=== PATIENT | male | born 1950 | race Caucasian/White ===

== ENCOUNTER 2021-01-14 23:40 | Inpatient (IN) | payer MEDICARE, SELFPAY ==
--- NOTE | ~2021-01-14 | CT_ITS ---
EXAMINATION: CT brain wo con INDICATION: Weakness COMPARISON: None TECHNIQUE: Standard unenhanced head CT. The dose-length product (DLP) was 681.00 mGy-cm. The mA was a djusted according to patient size. Iterative reconstruction technique was employed. FINDINGS: There is no acute intraparenchymal hemorrhage. No evidence of mass lesion. No evidence of a cute infarction. There is mild periventricular and subcortical hypodensity probably related to small vessel ischemic disease. There is mild prominence of the sulci and ventricles related to cerebral atr ophy. Intracranial calcified cerebral atherosclerosis is noted. There are no extra-axial collections. There is no mass effect or midline shift. The orbits and soft tissues are unremarkable. The visualiz ed sinuses and mastoid air cells are well aerated. IMPRESSION: 1. No acute intracranial abnormality. 2. Age related findings. Reviewed, dictated and finalized at location A.
--- NOTE | ~2021-01-14 | XR_ITS ---
EXAMINATION: XR chest 1V portable DATE: 01/15/2021 03:29 INDICATION: Chest pain. Weakness. TECHNIQUE: frontal view of the chest was obtained. COMPARISON: None FINDINGS: Mild linear discoid atelectasis at the bilateral lung bases. No pleural effusion or pneumothorax. The cardiomediastinal silhouette is normal. IMPRESSION: 1. Mild bibasilar atelectasis. Reviewed, dictated and finalized at location A.
--- NOTE | ~2021-01-14 | US_ITS ---
EXAMINATION: US venous doppler [facility] DATE: 01/16/2021 15:12 INDICATION: Lower limb swelling TECHNIQUE: Grayscale ultrasound images without and with compression and Doppler ultrasound images of the bilateral lower extremity veins were obtained. COMPARISON: None. FINDINGS: The visualized portions of right common femoral vein, profunda (deep) femoral vein, femoral vein, pop liteal vein, posterior tibial veins, peroneal veins, gastrocnemius vein and greater saphenous vein ou tflow are patent. The visualized portions of left common femoral vein, profunda femoral vein, femoral vein, popliteal v ein, posterior tibial veins, peroneal veins, gastrocnemius vein and greater saphenous vein outflow ar e patent. IMPRESSION: 1. No deep venous thrombosis in either lower limb. Reviewed, dictated and finalized at location A.
--- NOTE | ~2021-01-14 | CT_ITS ---
EXAMINATION: CT abdomen pelvis wo con DATE: 01/15/2021 10:23 INDICATION: Vomiting and sepsis TECHNIQUE: Computed tomography (CT) of the abdomen and pelvis was performed without intravenous contr ast. The dose-length product (DLP) was 1705.23 mGy-cm. Automated exposure control and iterative recon struction technique were employed. COMPARISON: 06/22/2018 FINDINGS: Minimal dependent atelectasis is present in the lung bases. The heart size is normal. Calci fied atherosclerosis is noted. There are trace pleural effusions. The liver, spleen, pancreas, and ad renal glands are normal. Stones are present in the nondistended gallbladder. There are three nonobstr ucting stones of the right kidney which measure up to 4 mm. A punctate nonobstructing stone is presen t in the left kidney lower pole. Cysts of the kidneys measure up to 3.2 cm on the left. There is a 5 mm stone in the dependent portion of the urinary bladder. There is moderate fat stranding surrounding the right kidney and portions of the right ureter. The appendix is normal. There is calcified athero sclerosis of the aorta and many of the other arteries. No pathologically enlarged abdominal or pelvic lymph nodes are identified. There is no free intraperitoneal gas or evidence of bowel obstruction. T here is moderate lumbar spondylosis. IMPRESSION: 1. 5 mm stone in the urinary bladder and moderate fat stranding surrounding the right kidney and port ions of the right ureter. Findings could reflect recent passage of right-sided stone with urinary tra ct infection and possible right pyelonephritis. 2. Nonobstructing bilateral nephrolithiasis. 3. Cholelithiasis without evidence of cholecystitis. Reviewed, dictated and finalized at location A. IMPRESSION: 1. 5 mm stone in the urinary bladder and moderate fat stranding surrounding the right kidney and portions of the right ureter. Findings could reflect recent p assage of right-sided stone with urinary tract infection and possible right yashira lonephritis. 2. Nonobstructing bilateral nephrolithiasis. 3. Cholelithiasis without evidence of cholecystitis.
[2021-01-14 23:45] VITALS: BP 136/67; PULSE 103; RESP 20; TEMP 36.8; O2SAT 94
[2021-01-15] VITALS (14 sets, daily range): BP systolic 130–139; BP diastolic 63–69; PULSE 87–110; RESP 18–34; TEMP 36.5–37.9; O2SAT 91–96; BMI 39.6
--- NOTE | 2021-01-15 01:07 | ECG_ITS ---
Measurements Intervals [place] Rate: 103 P: 37 VT: 197 QRS: -10 QRSD: 109 T: 28 QT: 340 QTc: 446 Interpretive Statements SINUS TACHYCARDIA INFERIOR INFARCT, AGE INDETERMINATE BASELINE WANDER- I, II, AVR, V4 ABNORMAL ECG Electronically Signed On 01-15-2021 5:44:29 CDT by Chapito Bailey D.O.
--- NOTE | 2021-01-15 01:08 | ED.WEAKNESS ---
HPI - Weakness General Chief complaint: Weakness Stated complaint: weakness Time Seen by Provider: 01/15/21 01:07 Source: patient Mode of arrival: EMS Limitations: no limitations History of Present Illness HPI Narrative: Patient is a 70-year-old male complaining of right lower extremity weakness that started yesterday and today he is having generalized weakness and not even able to stand up and ambulate. states that he has been vomiting all day. Patient denies any speech or visual disturbance, chest pain, shortness of breath, abdominal pain, diarrhea, fever or chills. Patient currently denies any nausea or vomiting. Related Data Home Medications Medication Instructions Recorded Confirmed aspirin 81 mg tablet,delayed 81 mg PO DAILY 09/14/19 release insulin NPH isoph U-100 human 100 10 unit SUB-Q DAILY 09/14/19 unit/mL (3 mL) subcutaneous pen lisinopril 2.5 mg tablet 2.5 mg PO DAILY 09/14/19 metformin 500 mg tablet,extended 500 mg PO DAILY 09/14/19 release 24 hr Allergies Allergy/AdvReac Type Severity Reaction Status Date / Time No Known Allergies Allergy Unverified 09/17/20 13:26 Review of Systems Review of Systems: All systems reviewed & are unremarkable except as noted in HPI and below Constitutional: Constitutional: Denies body ache(s), Denies chills, Denies excessive sweating, Denies fatigue, Denies fever(s), Denies headache(s), Denies lethargy, Denies malaise and Denies weight loss Eyes: Eyes: Denies blurry vision, Denies change in vision and Denies loss of vision ENT: Denies dizziness, Denies ear discharge, Denies headache(s), Denies lip swelling, Denies epistaxis, Denies nasal congestion, Denies neck pain, Denies throat swelling and Denies tongue swelling Cardiovascular: Cardiovascular: Denies chest pain, Denies chest pain at rest, Denies chest pain with activity, Denies diaphoresis, Denies rapid heart rate, Denies edema, Denies irregular heart rhythm, Denies lightheadedness, Denies palpitations, Denies dyspnea and Denies dyspnea on exertion Respiratory: Respiratory: Denies chest congestion, Denies cough, Denies hemoptysis, Denies dyspnea and Denies dyspnea on exertion Gastrointestinal: Gastrointestinal: Denies abdominal pain, Denies melena, Denies hematochezia, Denies diarrhea and Denies hematemesis Musculoskeletal: Musculoskeletal: Denies abnormal gait, Denies deformity, Denies joint swelling, Denies limited range of motion, Denies neck pain and Denies numbness Neurologic: Denies Abnormal speech present, Denies confusion, Denies dizziness, Denies headache(s), Denies loss of vision, Denies numbness, Denies Other visual disturbances and Denies Sensory deficit (Neuro) Psychiatric: Psychiatric: Denies confusion, Denies depression, Denies auditory hallucinations, Denies homicidal ideation and Denies suicidal ideation Endocrine: Endocrine: Denies cold intolerance, Denies excessive sweating, Denies fatigue, Denies heat intolerance and Denies palpitations Hematologic/Lymphatic: Hematologic/Lymphatic: Denies easy bleeding and Denies easy bruising Allergic/Immunologic: Allergic/Immunologic: Denies lip swelling, Denies throat swelling and Denies tongue swelling PMFSH Past Medical History Medical History Acrochordon Irritability and anger Lipoma of skin of abdomen Prostate cancer screening Wellness examination Family History Family History Father Diabetes mellitus Family history of coronary artery disease Sibling Hypertension Family history of malignant neoplasm of breast in first degree relative Other Family history of arthritis Family history of malignant neoplasm Social History Social History Smoking packs per day: 1 Smoking cigarettes per day: 20.0 Years smoked: 30 Smoking pack-years: 30.00 Smoking status: Form
[2021-01-15 01:58] LABS: Basophils Percent Auto 0.2 % (0.2-1.2); Eosinophils Absolute Auto 0.2 K/mm3 (0-0.3); Eosinophils Percent Auto 0.9 % (0-4.4); Hemoglobin 13.7 g/dL (14.0-18.0); Immature Granulocyte Absolute 0.08 K/mm3 (0.00-0.031); Immature Granulocyte Percent A 0.5 % (0-0.5); Immature Platelet Fraction Pct 7.1 % (0.9-11.2); Lymphocytes Absolute Auto 0.64 K/mm3 (0.9-3.2); Lymphocytes Percent Auto 3.7 % (18.3-44.2); Mean Corpuscular HGB Conc 32.6 g/dl (32-36); Mean Corpuscular Hemoglobin 29.1 pg (26-34); Mean Corpuscular Volume 89.2 fl (80-100); Mean Platelet Volume 11.6 fl (7.4-10.4); Monocytes Percent Auto 5.7 % (2.6-8.5); Neutrophils Absolute Auto 15.4 K/mm3 (1.3-6.7); Platelet Count Result 120 k/mm3 (150-375); Red Blood Count 4.71 M/mm3 (4.6-6.20); Red Cell Distribution Width 15.6 % (11.5-14.5); White Blood Count 17.3 K/mm3 (4.5-10.0)
[2021-01-15 02:07] LABS: Anion Gap 8 mmol/L (8-16); Blood Urea Nitrogen 26 mg/dL (9-20); Calcium 10.1 mg/dL (8.4-10.2); Carbon Dioxide 24 mmol/L (22-30); Chloride 103 mmol/L (98-107); Estimated CRCL calculation 42 ml/min; Estimated Glomerular Filt Rate 35; Glucose 186 mg/dL (75-110); Potassium 3.8 mmol/L (3.4-5.0); Sodium 135 mmol/L (137-145)
[2021-01-15 02:19] LABS: Troponin I < 0.012 ng/mL (0.000-0.034)
[2021-01-15 02:23] LABS: INR 1.1; Prothrombin Time 15.1 Seconds (11.1-14.7)
[2021-01-15 02:24] LABS: Partial Thromboplastin Time 38.9 SECONDS (22.3-36.8)
[2021-01-15] MEDS: SODIUM CHLORIDE 0.9% IV 1,000 ML 999 ML IV CONT (03:28)
[2021-01-15] MEDS: ONDANSETRON INJ 4 MG/2 ML VIAL IV PUSH (03:28)
--- NOTE | 2021-01-15 03:41 | PC.NURSE ---
pt placed on 2 liters of oxygen per nc.
[2021-01-15] MEDS: LACTATED RINGERS 1,000 ML 100 ML IV CONT (04:24)
--- NOTE | 2021-01-15 04:31 | ADMGEN ---
This patient, Tom Segura, was admitted to Medical Room 243-. Patient/family oriented to hospital policies and general routines including ID bracelet, bed and alarms, visiting hours, pain management, procedures, bathroom and other care routines, personal items, smoking policy, room service/diet, and visiting hours. Information on how to activate the Rapid Response Team has been discussed. Patient/Family are encouraged to report perceived risks to care and to ask questions if they do not understand what they are told or what they should do.
[2021-01-15 08:18] LABS: Glucose Point of Care 178 mg/dl (65-105)
--- NOTE | 2021-01-15 09:06 | PM.IMHP ---
H&P: HPI History of Present Illness Date/Time: 01/15/21 09:06 Chief Complaint: weakness Narrative: Pt is a 70-year-old male with a history of diabetes, hypertension, and sleep apnea who presented emergency room for weakness and vomiting. Patient states that he started feeling weak on Wednesday and it started getting progressively worse. Yesterday he was walking and his legs gave out and he flopped down onto the floor onto his knees and did not hit his head. He was on the floor for 15 minutes until he was able to be helped up by EMS. He states that he usually walks without an assisted device and his right leg has been a little weak for the last few days. He denies numbness or tingling to the area but notices that he drags it at times. He has not noticed any other neurological deficits such as numbness or tingling to his upper extremities, slurred speech, or vision changes. He says that he generally feels weak all over as he usually props up his arm in the truck to get in and he could not do this. He also mentions that he started vomiting on Wednesday. He had some potato salad on Wednesday night and the next morning he had a snack and started vomiting right after. He has no abdominal pain associated with this and he was just having nausea that caused vomiting. No one else is sick. No diarrhea. He denies dysuria, hematuria, uncontrolled bowel movements or urination, diarrhea, constipation, history of blood clot, leg swelling, heartburn or rashes. 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 He has sleep apnea and wears his CPAP routinely. He had a COVID vaccine a couple months ago and received the Nik Nik vaccine. Two weeks prior to this he was walking without any issues Review of Systems Review of Systems: All systems reviewed & are unremarkable except as noted in HPI and below PMFSH Past Medical History Medical History Acrochordon Generalized weakness HTN (hypertension), benign Irritability and anger Lipoma of skin of abdomen Prostate cancer screening T2DM (type 2 diabetes mellitus) Wellness examination Surgical History Surgical History (Updated 01/15/21 @ 11:25 by Angie Jaeger PA-C) History of left knee replacement Family History Family History Father Diabetes mellitus Family history of coronary artery disease Sibling Hypertension Family history of malignant neoplasm of breast in first degree relative Other Family history of arthritis Family history of malignant neoplasm Social History Social History (Updated 01/15/21 @ 11:26 by Angie Jaeger PA-C) Social History: Patient smokes 1 pack per day but does not drink alcohol. He has daily marijuana ingestion which he smokes and eats. 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 He would like to be a full code. In the event that he is unable to make decisions for himself, he would like to have his , Rose Best to make decisions for him. Smoking packs per day: 1 Smoking cigarettes per day: 20.0 Years smoked: 1 Smoking pack-years: 1.00 Smoking status: Current every day smoker Tobacco type: cigarettes Second hand tobacco smoke exposure: Yes Smoking end date: 07/26/94 Alcohol intake: never Substance use: never Substance use type: does not use Gender identity (if verbalized by the patient): Male Spiritual care concerns: No Meds Home Medications and Allergies Home Medications Medication Instructions Recorded Confirmed Type insulin NPH isoph U-100 human 100 65 unit SUB-Q BID 09/14/19 01/15/21 History unit/mL (3 mL) subcutaneous pen lisinopril 2.5 mg tablet 2.5 mg PO DAILY 09/14/19 01/15/21 History metformin 500 mg tablet,extended 500 mg PO DAILY 09/14/19 01/15/21 History release 24 hr fenofibrate 160 mg tablet 80 mg PO DAILY #45 tablet 05/29/20 01/15/21 Rx escitalopram oxalate 10 mg
[2021-01-15 09:25] LABS: Basophils Percent Auto 0.2 % (0.2-1.2); Eosinophils Percent Auto 0.1 % (0-4.4); Hematocrit 39.9 % (42.0-52.0); Immature Granulocyte Absolute 0.05 K/mm3 (0.00-0.031); Immature Granulocyte Percent A 0.4 % (0-0.5); Immature Platelet Fraction Pct 6.9 % (0.9-11.2); Lymphocytes Absolute Auto 0.57 K/mm3 (0.9-3.2); Lymphocytes Percent Auto 4.1 % (18.3-44.2); Mean Corpuscular HGB Conc 32.6 g/dl (32-36); Mean Corpuscular Hemoglobin 29.2 pg (26-34); Mean Corpuscular Volume 89.7 fl (80-100); Mean Platelet Volume 10.7 fl (7.4-10.4); Monocytes Absolute Auto 0.9 K/mm3 (0.1-0.6); Monocytes Percent Auto 6.3 % (2.6-8.5); Neutrophils Absolute Auto 12.3 K/mm3 (1.3-6.7); Neutrophils Percent Auto 88.9 % (45.5-73.1); Platelet Count Result 113 k/mm3 (150-375); Red Blood Count 4.45 M/mm3 (4.6-6.20); Red Cell Distribution Width 15.9 % (11.5-14.5); White Blood Count 13.8 K/mm3 (4.5-10.0)
[2021-01-15 09:34] LABS: Lipase 65 U/L (23-300)
[2021-01-15 09:34] LABS: Lactic Acid Reflex 0.8 mmol/L (0.7-2.1)
[2021-01-15 09:37] LABS: Alanine Aminotransferase 16 U/L (4-50); Albumin Level 3.7 g/dL (3.5-5.1); Alkaline Phosphatase 51 U/L (38-126); Anion Gap 8 mmol/L (8-16); Aspartate Amino Transferase 21 U/L (17-59); Bilirubin,Total 0.8 mg/dL (0.2-1.3); Blood Urea Nitrogen 23 mg/dL (9-20); Calcium 9.4 mg/dL (8.4-10.2); Carbon Dioxide 25 mmol/L (22-30); Chloride 102 mmol/L (98-107); Creatine Kinase 99 U/L (55-170); Estimated CRCL calculation 45 ml/min; Estimated Glomerular Filt Rate 35; Glucose 171 mg/dL (75-110); Potassium 3.8 mmol/L (3.4-5.0); Sodium 135 mmol/L (137-145)
[2021-01-15 10:34] LABS: Procalcitonin 0.8 ng/mL
--- NOTE | 2021-01-15 10:37 | WPDNEURCNPN ---
Assessment and Plan Additional Plan complaints of generalized weakness, leukocytosis on the routine lab and hemoglobin of 13.0 and low platelet count BMP with BUN of 23 creatinine of 1.0 estimated GFR of only 35 with glucose 171, CT abdomen revealed nephrolithiasis and cholelithiasis although head CT scan is negative at this stage there is no focal neurological deficit we can obtain the CPK and aldolase and further recommendation according Consult date: 01/15/21 Time Seen: 11:00 HPI: Tom Segura is a 70 year old maleAdmitted to the hospital for the complaints of right lower extremity weakness is starting yesterday along with the complaints of generalized weakness as well patient is literally unable to stand up and ambulate reportedly had had been vomiting all day. He gave no history of associated speech or visual difficulties. Patient has been taking aspirin 81 mg daily along with the diabetic treatment and lisinopril 2.5 mg daily Review of Systems Review of Systems: All systems reviewed & are unremarkable except as noted in HPI and below PMFSH Past Medical History Medical History Acrochordon Generalized weakness HTN (hypertension), benign Irritability and anger Lipoma of skin of abdomen Prostate cancer screening T2DM (type 2 diabetes mellitus) Wellness examination Surgical History Surgical History History of left knee replacement Family History Family History Father Diabetes mellitus Family history of coronary artery disease Sibling Hypertension Family history of malignant neoplasm of breast in first degree relative Other Family history of arthritis Family history of malignant neoplasm Social History Social History Social History: Patient smokes 1 pack per day but does not drink alcohol. He has daily marijuana ingestion which he smokes and eats. 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 He would like to be a full code. In the event that he is unable to make decisions for himself, he would like to have his , Rose Best to make decisions for him. Smoking packs per day: 1 Smoking cigarettes per day: 20.0 Years smoked: 1 Smoking pack-years: 1.00 Smoking status: Current every day smoker Tobacco type: cigarettes Second hand tobacco smoke exposure: Yes Smoking end date: 07/26/94 Alcohol intake: never Substance use: never Substance use type: does not use Gender identity (if verbalized by the patient): Male Spiritual care concerns: No Meds Home Medications and Allergies Home Medications Medication Instructions Recorded Confirmed Type insulin NPH isoph U-100 human 100 65 unit SUB-Q BID 09/14/19 01/15/21 History unit/mL (3 mL) subcutaneous pen lisinopril 2.5 mg tablet 2.5 mg PO DAILY 09/14/19 01/15/21 History metformin 500 mg tablet,extended 500 mg PO DAILY 09/14/19 01/15/21 History release 24 hr fenofibrate 160 mg tablet 80 mg PO DAILY #45 tablet 05/29/20 01/15/21 Rx escitalopram oxalate 10 mg tablet 10 mg PO DAILY #90 tablet 09/18/20 01/15/21 Rx carvedilol 25 mg tablet 25 mg PO Q12H #180 tablet 10/28/20 01/15/21 Rx pravastatin 40 mg tablet See Rx Instructions .ROUTE 11/18/20 01/15/21 Rx .COMPLEX #90 tablet Novolin R Flexpen 1 unit SUBCUT BID 01/15/21 01/15/21 History multivit with min-folic acid 1 tablet PO DAILY 01/15/21 01/15/21 History [Adult One Daily Multivitamin] triamterene-hydrochlorothiazid 37.5 cap PO DAILY 01/15/21 01/15/21 History Allergies Allergy/AdvReac Type Severity Reaction Status Date / Time No Known Allergies Allergy Verified 01/15/21 04:30 Vital Signs Vital Signs - 24 hr 01/14/21 23:45 01/15/21 03:20 01/15/21 04:37 Temperature 36.8 C Pulse Rate 103 H 110 H 110 H Respiratory Rate 20 34 H 34 H Blood Pressure 136/67 139/69 Pulse Oximet
[2021-01-15 11:13] LABS: Creatine Kinase 88 U/L (55-170)
[2021-01-15] MEDS: carvediloL 25 MG TABLET PO ×2 (11:33→21:28)
[2021-01-15] MEDS: ESCITALOPRAM OXALATE 10 MG TABLET PO (11:34)
[2021-01-15] MEDS: INSULIN ASPART (*BKC) 100 UNITS/ML SUB-Q ×2 (11:44→17:05)
[2021-01-15 11:45] LABS: Glucose Point of Care 265 mg/dl (65-105)
[2021-01-15 11:57] LABS: Add Urine Microscopic? YES; Appearance Urine Cloudy (Clear); Bacteria Urine 3+ /hpf; Bilirubin Urine Negative (Negative); Blood Urine 1+ (Negative); Color Urine Yellow (Yellow); Glucose Urine UA Negative (Negative); Ketones Urine Negative (Negative); Leukocyte Esterase Ur 2+ LEU/UL (Negative); Mucus Urine Rare /lpf; Nitrate Urine Positive (Negative); Protein Urine 2+ mg/dL (Negative); Specific Grav Ur 1.019 (1.001-1.035); Squamous Epithelial Cell Urine Rare /hpf (Few); WBC Urine >75 /hpf
[2021-01-15 17:14] LABS: Glucose Point of Care 235 mg/dl (65-105)
[2021-01-15] MEDS: ACETAMINOPHEN 325 MG TABLET 650 MG PO (17:19)
[2021-01-15 22:38] LABS: Glucose Point of Care 288 mg/dl (65-105)
[2021-01-16] VITALS (8 sets, daily range): BP systolic 123–137; BP diastolic 62–66; PULSE 69–93; RESP 18–23; TEMP 36.1–36.5; O2SAT 92–97
--- NOTE | 2021-01-16 | ECHO_ITS ---
Patient Info Name: Tom Segura Age: 70 years : 1950 Gender: Male Ht: 71 in Wt: 284 lbs BSA: 2.59 m2 HR: 77 bpm BP: 123 / 64 mmHg Technical Quality: Fair Exam Date: 01/16/2021 2:04 PM Exam Location: [facility] Patient Status: Inpatient Admit Date: 01/16/2021 Staff Ordering Physician: Angie Jaeger PA-C Cd Mixer Helper: Angeles Blackburn RDCS Attending Provider: Angie Jaeger PA-C Referring Physician: Mil MOONEY; Exam Type: CA echo doppler color flow Study Info Indications - LE SWELLING, UNKNOWN CARDIAC DISEASE Complete two-dimensional, color flow and Doppler transthoracic echocardiogram is performed. Summary 1. Complete two-dimensional, color flow and Doppler transthoracic echocardiogram is performed. 2. Left ventricular chamber dimension is normal. 3. Left ventricular systolic function is normal, estimated at 60-65%. 4. There is mildly increased left ventricular wall thickness. 5. The left ventricular diastolic function is grade I diastolic dysfunction. 6. E/e' 11 is mildly elevated. 7. Left atrial chamber dimension is mildly enlarged. 8. There is trace aortic valve regurgitation. 9. There is mild mitral valve regurgitation. 10. No pulmonary hypertension, estimated pulmonary arterial systolic pressure is 20 mmHg. 11. There is trace pulmonic regurgitation. Left Ventricle E/e' 11 is mildly elevated. Left ventricular chamber dimension is normal. Left ventricular systolic function is normal, estimated at 60-65%. There is mildly increased left ventricular wall thickness. The left ventricular diastolic function is grade I diastolic dysfunction. Right Ventricle Right ventricular systolic function is normal with normal TAPSE 2.1 cm. Right ventricular chamber dimension is normal. Left Atria Left atrial chamber dimension is mildly enlarged. Right Atria Right atrial chamber dimension is normal. Aortic Valve The aortic valve is trileaflet. There is no aortic valve stenosis. There is trace aortic valve regurgitation. Pulmonic Valve There is trace pulmonic regurgitation. Mitral Valve There is no mitral valve stenosis. There is mild mitral valve regurgitation. Tricuspid Valve There is no tricuspid valve regurgitation. No pulmonary hypertension, estimated pulmonary arterial systolic pressure is 20 mmHg. Pericardium/Pleural There is no pericardial effusion. Inferior Vena Cava Normal inferior vena cava with >50% collapse upon inspiration consistent with normal right atrial pressure, 5 mmHg. Aorta The aortic root size at the sinus of Valsalva is normal. Left Ventricular Outflow Tract Name Value Normal LVOT 2D LVOT Diameter 2.3 cm LVOT Doppler LVOT Peak Gradient 4 mmHg LVOT Mean Gradient 2 mmHg LVOT VTI 21 cm LVOT VTI/AV VTI Ratio 1.0 LVOT Stroke Volume 91 ml LVOT CO 6.7 l/min LVOT CI 2.6 l/min/m2 Pulmonic Valve
[2021-01-16 05:40] LABS: Hematocrit 36.8 % (42.0-52.0); Hemoglobin 11.7 g/dL (14.0-18.0); Immature Platelet Fraction Pct 7.6 % (0.9-11.2); Mean Corpuscular HGB Conc 31.8 g/dl (32-36); Mean Corpuscular Volume 91.3 fl (80-100); Mean Platelet Volume 11.2 fl (7.4-10.4); Platelet Count Result 108 k/mm3 (150-375); Red Blood Count 4.03 M/mm3 (4.6-6.20); Red Cell Distribution Width 15.9 % (11.5-14.5); White Blood Count 9.7 K/mm3 (4.5-10.0)
[2021-01-16 05:46] LABS: Albumin Level 3.3 g/dL (3.5-5.1); Anion Gap 6 mmol/L (8-16); Blood Urea Nitrogen 29 mg/dL (9-20); Calcium 8.9 mg/dL (8.4-10.2); Carbon Dioxide 25 mmol/L (22-30); Chloride 104 mmol/L (98-107); Estimated CRCL calculation 50 ml/min; Estimated Glomerular Filt Rate 40; Glucose 251 mg/dL (75-110); Phosphorus 2.8 mg/dL (2.5-4.5); Sodium 135 mmol/L (137-145)
[2021-01-16 08:52] LABS: Glucose Point of Care 228 mg/dl (65-105)
[2021-01-16] MEDS: ESCITALOPRAM OXALATE 10 MG TABLET PO (09:34)
[2021-01-16] MEDS: carvediloL 25 MG TABLET PO ×2 (09:34→21:25)
[2021-01-16] MEDS: PANTOPRAZOLE SOD SESQUIHYDRATE 20 MG TAB PO (09:34)
[2021-01-16] MEDS: INSULIN ASPART (*BKC) 100 UNITS/ML SUB-Q ×3 (09:34→17:15)
[2021-01-16 12:16] LABS: Glucose Point of Care 293 mg/dl (65-105)
--- NOTE | 2021-01-16 13:07 | PM.IMPN ---
Progress Note: A&P Assessment and Plan (1) Pyelonephritis: Code(s): N12 - Tubulo-interstitial nephritis, not specified as acute or chronic Status: Acute Assessment and Plan: CT shows bladder stone and fat stranding surrounding the right kidney and right ureter consistent with recent passage of right sided stone with UTI and possible pyelonephritis -continue ceftriaxone and await urine culture -blood cultures have no growth to date -pt has a hx of renal stones and had no pain recently. -kidney function has improved (2) Sepsis: Code(s): A41.9 - Sepsis, unspecified organism Status: Acute Assessment and Plan: Resolved. Pt had a pulse of 110, WBC of 17.3, and respiratory rate 34 which is concerning for infection. Anion gap was normal -leukocytosis resolved today 9.7 -likely due to UTI/pyelo -chest x-ray shows mild bibasilar atelectasis -continue ceftriaxone (3) Acute kidney injury superimposed on chronic kidney disease: Code(s): N17.9 - Acute kidney failure, unspecified; N18.9 - Chronic kidney disease, unspecified Status: Acute Assessment and Plan: Creatinine 1.7 today which is improved from admission. -baseline creatinine 1.57 on outpatient labs -CK normal -hold lisinopril and metformin (4) Vomiting: Code(s): R11.10 - Vomiting, unspecified Status: Acute Assessment and Plan: Resolved (5) T2DM (type 2 diabetes mellitus): Code(s): E11.9 - Type 2 diabetes mellitus without complications Status: Acute Assessment and Plan: Last glucose 293 -hold home and metformin -patient utilizes NPH insulin 65 units b.i.d. will restarted lower dose of 35u and adjust from there -continue diabetic diet, Accu-Cheks and sliding scale insulin -adjust as necessary A1c 10/13 was 6.9 (6) HTN (hypertension), benign: Code(s): I10 - Essential (primary) hypertension Status: Inactive Assessment and Plan: Last blood pressure 123/54 -Continue carvedilol -hold lisinopril and hydrochlorothiazide (7) Hyperlipidemia: Code(s): E78.5 - Hyperlipidemia, unspecified Status: Acute Assessment and Plan: Hold statin -ck normal (8) Generalized weakness: Code(s): R53.1 - Weakness Status: Inactive Assessment and Plan: Improving rapidly. Patient was a serous study yesterday and is now walking with a walker. 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 Much better compared to yesterday. He is now able to stand and walk to the bathroom which is a big improvement. He says he continues to have no pain. Pt denies nausea, vomiting, fevers, chills, constipation, diarrhea, chest pain, sob, or abdominal pain. Review of Systems Review of Systems: All systems reviewed & are unremarkable except as noted in HPI and below Exam Narrative: Exam Narrative: General:Well developed well nourished patient resting comfortably in the chair in no acute distress HEENT: Normocephalic, atraumatic, PERRL, Sclerae anicteric, oral mucosa moist. Neck: Supple Resp: CTA, no crackles or rhonchi today Heart: RRR with no murmurs Abd: Soft, nontender. No pain to palpation. Positive bowel sounds Skin: Warm and dry. Abrasions to bilateral shins Extremities: 1+ pitting edema up to the knees bilaterally. No pain to palpation Neuro: Alert and Oriented x 4. CN 2-12 intact. No focal neurological deficits. Strength 5/5 in the upper and lower extremities. Able to do rapid alternating movement
[2021-01-16] MEDS: INSULIN HUMAN NPH (*BKC) 100 UNITS/ML 35 UNITS SUB-Q (16:18)
[2021-01-16 20:40] LABS: Glucose Point of Care 252 mg/dl (65-105)
[2021-01-16 20:40] LABS: Glucose Point of Care 268 mg/dl (65-105)
[2021-01-17 02:43] VITALS: PULSE 72; RESP 17; O2SAT 93
[2021-01-17 06:00] VITALS: BP 126/53; PULSE 70; RESP 20; TEMP 36.3; O2SAT 95
[2021-01-17 06:32] LABS: Basophils Percent Auto 0.6 % (0.2-1.2); Eosinophils Absolute Auto 0.1 K/mm3 (0-0.3); Hematocrit 36.9 % (42.0-52.0); Hemoglobin 11.6 g/dL (14.0-18.0); Immature Granulocyte Absolute 0.02 K/mm3 (0.00-0.031); Immature Granulocyte Percent A 0.3 % (0-0.5); Immature Platelet Fraction Pct 8.6 % (0.9-11.2); Lymphocytes Absolute Auto 1.09 K/mm3 (0.9-3.2); Lymphocytes Percent Auto 15.4 % (18.3-44.2); Mean Corpuscular HGB Conc 31.4 g/dl (32-36); Mean Corpuscular Hemoglobin 28.7 pg (26-34); Mean Corpuscular Volume 91.3 fl (80-100); Mean Platelet Volume 11.6 fl (7.4-10.4); Monocytes Absolute Auto 0.8 K/mm3 (0.1-0.6); Monocytes Percent Auto 11.6 % (2.6-8.5); Neutrophils Percent Auto 70.1 % (45.5-73.1); Platelet Count Result 115 k/mm3 (150-375); Red Blood Count 4.04 M/mm3 (4.6-6.20); Red Cell Distribution Width 15.6 % (11.5-14.5); White Blood Count 7.1 K/mm3 (4.5-10.0)
[2021-01-17 06:47] LABS: Anion Gap 8 mmol/L (8-16); Blood Urea Nitrogen 25 mg/dL (9-20); Calcium 9.1 mg/dL (8.4-10.2); Carbon Dioxide 23 mmol/L (22-30); Chloride 105 mmol/L (98-107); Estimated CRCL calculation 60 ml/min; Estimated Glomerular Filt Rate 50; Glucose 168 mg/dL (75-110); Sodium 136 mmol/L (137-145)
[2021-01-17] MEDS: INSULIN HUMAN NPH (*BKC) 100 UNITS/ML 35 UNITS SUB-Q (07:19)
[2021-01-17 07:43] LABS: Glucose Point of Care 201 mg/dl (65-105)
[2021-01-17 09:18] VITALS: PULSE 76
[2021-01-17] MEDS: INSULIN ASPART (*BKC) 100 UNITS/ML SUB-Q ×2 (09:18→12:00)
[2021-01-17] MEDS: carvediloL 25 MG TABLET PO (09:18)
[2021-01-17] MEDS: PANTOPRAZOLE SOD SESQUIHYDRATE 20 MG TAB PO (09:18)
[2021-01-17] MEDS: ESCITALOPRAM OXALATE 10 MG TABLET PO (09:18)
--- NOTE | 2021-01-17 10:11 | PM.DS ---
DS: Admitting Diagnosis Admitting Diagnosis Admitting Diagnosis: pyelonephritis DS: Discharge Diagnosis Discharge Diagnosis (1) Pyelonephritis: Code(s): N12 - Tubulo-interstitial nephritis, not specified as acute or chronic Status: Acute Assessment and Plan: CT shows bladder stone and fat stranding surrounding the right kidney and right ureter consistent with recent passage of right sided stone with UTI and possible pyelonephritis -urine cx leon sensitive. Pt received ceftriaxone while hospitalized and discharged on Augmentin. -blood cultures have no growth to date and will be monitored until finalized -pt has a hx of renal stones and had no pain recently. -kidney function has improved to baseline -Pt was very persistent about discharge. He was walking in the halls and felt much better. (2) Sepsis: Code(s): A41.9 - Sepsis, unspecified organism Status: Acute Assessment and Plan: Resolved. Pt had a pulse of 110, WBC of 17.3, and respiratory rate 34 which is concerning for infection. Anion gap was normal -leukocytosis resolved today 7.1 -likely due to UTI/pyelo -chest x-ray shows mild bibasilar atelectasis -abx as above (3) Acute kidney injury superimposed on chronic kidney disease: Code(s): N17.9 - Acute kidney failure, unspecified; N18.9 - Chronic kidney disease, unspecified Status: Acute Assessment and Plan: Creatinine 1.4 today which is improved from admission. -baseline creatinine 1.57 on outpatient labs -CK normal -okay to continue home lisinopril and metformin (4) Vomiting: Code(s): R11.10 - Vomiting, unspecified Status: Acute Assessment and Plan: Resolved (5) T2DM (type 2 diabetes mellitus): Code(s): E11.9 - Type 2 diabetes mellitus without complications Status: Acute Assessment and Plan: Last glucose 215 -continue home and metformin and insulin -continue diabetic diet, Accu-Cheks and sliding scale insulin -adjust as necessary A1c 10/13 was 6.9 (6) HTN (hypertension), benign: Code(s): I10 - Essential (primary) hypertension Status: Inactive Assessment and Plan: Last blood pressure 126/53 -Continue carvedilol -okay to continue lisinopril and hydrochlorothiazide (7) Hyperlipidemia: Code(s): E78.5 - Hyperlipidemia, unspecified Status: Acute Assessment and Plan: continue home medications (8) Generalized weakness: Code(s): R53.1 - Weakness Status: Inactive Assessment and Plan: Improved rapidly. He started out as a dru steady and day of discharge was walking the halls. No foot drag or focal weakness. No need for PT/OT (9) Thrombocytopenia: Code(s): D69.6 - Thrombocytopenia, unspecified Status: Acute Assessment and Plan: mild and chronic 09/29/18 they were 108 and today they were 115 DS: Summary Hospital Course Hospital Course: 70-year-old male with history of diabetes, kidney stones, and hypertension who presented emergency room for generalized weakness. Patient states that his left knee is usually the good knee since it was replacement and his right knee is more weak. He noticed that his right knee was weaker than normal and he was unable to grab onto the truck bar to lift himself up into the truck. He had vomiting as well so he presented to the ER. Vitals in the ER were temperature 36.8? C, pulse 103, respiratory rate 20, blood pressure 136/67, pulse ox 94 on room air. Initial white blood cell count 17.3, hemoglobin 13.7, hematocrit 42, platelets 120. BMP showed an FAITH with creatinine 1.9. Patient was admitted to the hospitalist service and observed. He had no neurological abnormalities on initial exam. Because of his symptoms, a UA and CT of the pelvis was done which showed a UTI and CT showed a passed kidney stone with questionable pyelonephritis. The patient was started ceftriaxone. A
[2021-01-17 11:46] LABS: Glucose Point of Care 215 mg/dl (65-105)
[2021-01-17] MEDS: FUROSEMIDE INJ 40 MG/4 ML VIAL 20 MG IV PUSH (11:59)
--- NOTE | 2021-01-29 10:25 | PC.NURSE ---
Blood cx are negative.
== END 2021-01-17 12:30 | disposition home or self-care (01) | DRG 872 ==
LOC: ANHED 01-15 02:51 → ANH2MED 01-15 03:47
PROVIDERS: Physician Assistant; Psychiatry & Neurology Neurology; Admitting Provider Internal Medicine; Emergency Provider Emergency Medicine; PCP Family Medicine; Visit Provider Internal Medicine
DX: A41.9 Sepsis, unspecified organism (principal); N12 Tubulo-interstitial nephritis, not specified as acute or chronic; N17.9 Acute kidney failure, unspecified; B96.20 Unspecified Escherichia coli [E. coli] as the cause of diseases classified elsewhere; D69.6 Thrombocytopenia, unspecified; E11.22 Type 2 diabetes mellitus with diabetic chronic kidney disease; I12.9 Hypertensive chronic kidney disease with stage 1 through stage 4 chronic kidney disease, or unspecified chronic kidney disease; N18.9 Chronic kidney disease, unspecified; R53.1 Weakness; E78.5 Hyperlipidemia, unspecified; F17.210 Nicotine dependence, cigarettes, uncomplicated; G47.33 Obstructive sleep apnea (adult) (pediatric); Z79.4 Long term (current) use of insulin; Z79.899 Other long term (current) drug therapy; Z87.442 Personal history of urinary calculi; Z96.652 Presence of left artificial knee joint
CPT/HCPCS: 36415; 70450; 71045; 74176; 80048; 80069; 80076; 81001; 82550; 82948; 83605; 83690; 84145; 84484; 85025; 85027; 85055; 85610; 85730; 87040; 87077; 87086; 87088; 87186; 93005; 93306; 93970; 94660; 96361; 96365; 96366; 96375; 97110; 97161; 97165; 97530; 97535; 99285; A9270; G0378; J0696; J1815; J1940; J2405; J7030; J7120

== ENCOUNTER 2022-03-15 15:22 | Emergency (ER) | payer MEDICARE, SELFPAY ==
[2022-03-15 16:06] VITALS: BP 124/57; PULSE 97; RESP 16; TEMP 37.4; O2SAT 97
--- NOTE | 2022-03-15 17:39 | ED.GENADULT ---
HPI - General Adult General Chief complaint: Nausea/Vomiting/Diarrhea Stated complaint: N/V started approx 1hour ago. Time Seen by Provider: 03/15/22 17:17 History of Present Illness HPI narrative: 71-year-old male presenting the emergency department for evaluation of nausea and vomiting. Patient states that approximately 5 AM he began developing the nausea. Patient states vomiting did not start until approximately 1 PM. Patient denies any associated abdominal pain with this. Patient denies any hematemesis. Patient does have a prior history of urinary tract infection but denies any urinary retention and denies any pain with urination. Patient does have a history of kidney stones but denies any current flank or abdominal pain. Patient was treated with Zofran and IV fluids prior to evaluation and states he is symptoms are improved. Patient states that he did have some generalized weakness before but feels improved. Related Data Home Medications Medication Instructions Recorded Confirmed insulin NPH isoph U-100 human 100 65 unit subcut BID 09/14/19 08/07/21 unit/mL (3 mL) subcutaneous pen (Novolin N Flexpen) lisinopril 2.5 mg tablet 2.5 mg PO DAILY 09/14/19 08/07/21 metformin 500 mg tablet,extended 500 mg PO DAILY 09/14/19 08/07/21 release 24 hr Novolin R Flexpen 1 unit subcut BID 01/15/21 08/07/21 multivitamin with minerals-folic 1 tablet PO DAILY 01/15/21 08/07/21 acid 0.4 mg tablet (Adult One Daily Multivitamin) triamterene 37.5 37.5 cap PO DAILY 01/15/21 08/07/21 mg-hydrochlorothiazide 25 mg capsule Allergies Allergy/AdvReac Type Severity Reaction Status Date / Time No Known Allergies Allergy Verified 03/15/22 18:34 Review of Systems Review of Systems: CONSTITUTIONAL: Denies fever, chills, or sweats. EYES: Denies visual changes, redness, or discharge. ENT: Denies rhinorrhea, congestion, sore throat, or otalgia. CARDIOVASCULAR: Denies chest pain, palpitations, or edema. RESPIRATORY: Denies cough or dyspnea. GASTROINTESTINAL: Nausea and vomiting GENITOURINARY: Denies dysuria or hematuria. SKIN: Denies rash or itching. MUSCULOSKELETAL: Denies back pain, joint pain, or myalgia. NEUROLOGIC: Denies headache, numbness, or weakness. [facility] Past Medical History Medical History Acrochordon Generalized weakness HTN (hypertension), benign Irritability and anger Lipoma of skin of abdomen Prostate cancer screening T2DM (type 2 diabetes mellitus) Wellness examination Surgical History Surgical History History of left knee replacement Family History Family History Father Diabetes mellitus Family history of coronary artery disease Sibling Hypertension Family history of malignant neoplasm of breast in first degree relative Other Family history of arthritis Family history of malignant neoplasm Social History Social History Social History: Patient smokes 1 pack per day but does not drink alcohol. He has daily marijuana ingestion which he smokes and eats. 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 He would like to be a full code. In the event that he is unable to make decisions for himself, he would like to have his , Rose Best to make decisions for him. Smoking packs per day: 1 Smoking cigarettes per day: 20.0 Years smoked: 1 Smoking pack-years: 1.00 Smoking status: Former smoker Tobacco type: cigarettes Second hand tobacco smoke exposure: Yes Smoking end date: 07/26/94 Alcohol intake: never Substance use: never Substance use type: does not use Gender identity (if verbalized by the patient): Male Sexual Orientation (if Verbalized by the Patient): Straight or Heterosexual Spiritual care concerns: No Exam Narrative: APPEARANCE: Well appearing, no pain
[2022-03-15 17:54] LABS: Appearance Urine Clear (Clear); Bilirubin Urine Negative (Negative); Color Urine Yellow (Yellow); Glucose Urine UA 3+ mg/dL (Negative); Ketones Urine Negative (Negative); Leukocyte Esterase Ur Trace LEU/UL (Negative); Nitrate Urine Positive (Negative); Protein Urine 1+ mg/dL (Negative); Specific Grav Ur 1.015 (1.001-1.035); Urobilinogen Urine 0.2 mg/dL (<2.0); pH Urine 5.5 (5.0-9.0)
[2022-03-15 17:56] LABS: Basophils Percent Auto 0.4 % (0.2-1.2); Eosinophils Percent Auto 0.1 % (0-4.4); Hemoglobin 15.9 g/dL (14.0-18.0); Immature Granulocyte Absolute 0.04 K/mm3 (0.00-0.031); Immature Granulocyte Percent A 0.4 % (0-0.5); Immature Platelet Fraction Pct 7.8 % (0.9-11.2); Lymphocytes Absolute Auto 0.45 K/mm3 (0.9-3.2); Lymphocytes Percent Auto 4.2 % (18.3-44.2); Mean Corpuscular HGB Conc 32.4 g/dl (32-36); Mean Corpuscular Hemoglobin 30.7 pg (26-34); Mean Corpuscular Volume 94.6 fl (80-100); Mean Platelet Volume 11.4 fl (7.4-10.4); Monocytes Absolute Auto 0.9 K/mm3 (0.1-0.6); Monocytes Percent Auto 8.7 % (2.6-8.5); Neutrophils Absolute Auto 9.2 K/mm3 (1.3-6.7); Neutrophils Percent Auto 86.2 % (45.5-73.1); Platelet Count Result 121 k/mm3 (150-375); Red Blood Count 5.18 M/mm3 (4.6-6.20); Red Cell Distribution Width 15.6 % (11.5-14.5); White Blood Count 10.7 K/mm3 (4.5-10.0)
[2022-03-15 18:00] LABS: Bacteria Urine Trace /hpf; Mucus Urine Rare /lpf; WBC Urine 21-30 /hpf
[2022-03-15 18:04] LABS: Alanine Aminotransferase 24 U/L (6-50); Albumin Level 4.3 g/dL (3.5-5.1); Alkaline Phosphatase 64 U/L (38-126); Anion Gap 10 mmol/L (8-16); Aspartate Amino Transferase 22 U/L (17-59); Bilirubin,Total 0.7 mg/dL (0.2-1.3); Blood Urea Nitrogen 34 mg/dL (9-20); Calcium 9.7 mg/dL (8.4-10.2); Carbon Dioxide 24 mmol/L (22-30); Chloride 101 mmol/L (98-107); Estimated CRCL calculation 43 ml/min; Estimated Glomerular Filt Rate 35; Glucose 160 mg/dL (65-110); Lipase 86 U/L (23-300); Potassium 4.7 mmol/L (3.4-5.0); Sodium 135 mmol/L (137-145)
[2022-03-15 18:10] LABS: Add Urine Microscopic? YES; Blood Urine Trace-Intact (Negative)
[2022-03-15 19:35] VITALS: BP 125/66; PULSE 70; RESP 16; O2SAT 97
[2022-03-15 20:18] VITALS: BP 124/71; PULSE 101; RESP 20; O2SAT 91
== END 2022-03-15 20:20 | disposition home or self-care (01) ==
PROVIDERS: Emergency Provider Emergency Medicine; PCP Family Medicine
DX: N39.0 Urinary tract infection, site not specified (principal); R11.2 Nausea with vomiting, unspecified; I10 Essential (primary) hypertension; E11.9 Type 2 diabetes mellitus without complications; Z79.4 Long term (current) use of insulin; Z79.84 Long term (current) use of oral hypoglycemic drugs
CPT/HCPCS: 36415; 80053; 81001; 83605; 83690; 85025; 85055; 87077; 87086; 87186; 96365; 99284; J0696

== ENCOUNTER 2023-11-10 18:05 | Inpatient (IN) | payer MEDICARE, SELFPAY ==
[2023-11-10] VITALS (10 sets, daily range): BP systolic 149–170; BP diastolic 66–98; PULSE 73–92; RESP 16–26; TEMP 36.6–36.9; O2SAT 93–98; BMI 37.9
--- NOTE | ~2023-11-10 | CT_ITS ---
EXAMINATION: CT abdomen pelvis wo con DATE: 11/10/2023 19:12 INDICATION: Flank pain. TECHNIQUE: Computed tomography (CT) of the abdomen and pelvis was performed without intravenous contr ast. Automated exposure control and iterative reconstruction technique were employed. The dose-length product was 1514.36 mGy-cm. COMPARISON: None. FINDINGS: The visualized portions of the lung bases demonstrate mild atelectasis. No pleural effusion . The heart size is normal. There are coronary artery calcifications. No pericardial effusion. There is diffuse hepatic steatosis. There is a gallstone in the gallbladder, which is distended. The pancre as and adrenal glands are normal. There are cysts in the kidneys measuring up to 21 mm on the right. There are 3 stones in right kidney measuring up to 3 mm. The prostate is mildly enlarged. There is di verticulosis of the colon without evidence of diverticulitis. No dilated loops of bowel. The appendix is normal. There is calcified atherosclerosis of the aorta and many of the other arteries. There are no pathologically enlarged lymph nodes. There is no free intraperitoneal fluid. There is severe tho racic and lumbar spondylosis. IMPRESSION: 1. Cholelithiasis. Gallbladder distention may be secondary to fasting or acute cholecystitis. Correla te with physical exam. 2. Nonobstructing right kidney stones. Reviewed, dictated and finalized at location E. IMPRESSION: 1. Cholelithiasis. Gallbladder distention may be secondary to fasting or acute cholecystitis. Correlate with physical exam. 2. Nonobstructing right kidney stones.
--- NOTE | ~2023-11-10 | US_ITS ---
US abdomen limited INDICATION: Acute cholecystitis PROCEDURE: Realtime right upper abdominal ultrasound. COMPARISON: CT dated 11/10/2023 FINDINGS: Pancreas not well visualized due to bowel gas. Liver echotexture is increased, consistent with fatty infiltration. There is normal directional flow in the portal vein. There are gallstones. There is gallbladder wall thickening measuring 9 mm. Common bile duct measures 6 mm. No sonographic Long's sign. IMPRESSION: 1: Cholelithiasis with gallbladder wall thickening. Findings suspicious for cholecystitis in the appr opriate clinical setting. Reviewed, dictated and finalized at location B. IMPRESSION: 1: Cholelithiasis with gallbladder wall thickening. Findings suspicious for cho lecystitis in the appropriate clinical setting.
--- NOTE | ~2023-11-10 | XR_ITS ---
XR chest 1V portable 11/13/2023 05:46 Indication: Aspiration Procedure: AP portable chest Comparison: Chest report dated 01/15/2021 Findings: Linear infiltrates of the right lung base with elevated right diaphragm. Heart size normal. No pleural effusion, edema or pneumothorax. Impression: 1: Linear infiltrates of the right lung base may represent atelectasis or pneumonia. Reviewed, dictated and finalized at location A. Impression: 1: Linear infiltrates of the right lung base may represent atelectasis or pneum onia.
--- NOTE | ~2023-11-10 | CT_ITS ---
EXAMINATION: CT brain wo con DATE: 11/10/2023 19:12 INDICATION: Head injury. TECHNIQUE: Computed tomography (CT) of the head was performed without intravenous contrast. The mA wa s adjusted according to patient size. Iterative reconstruction technique was employed. The dose-lengt h product was 1514.36 mGy-cm. COMPARISON: None FINDINGS: There are scattered areas of low attenuation in the cerebral white matter. Old infarcts inv olving the bilateral basal ganglia and left thalamus. There is no intracranial hemorrhage, acute infa rction, or abnormal intracranial mass lesion. The ventricles are normal in size. There is mild mucosa l thickening in the paranasal sinuses. The orbits are normal. The mastoid air cells are normal. IMPRESSION: 1. 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 2. Moderate nonspecific cerebral white matter disease, which likely represents chronic small vessel i schemic disease. Reviewed, dictated and finalized at location E. IMPRESSION: 1. 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 2. Moderate nonspecific cerebral white matter disease, which likely represents chronic small vessel ischemic disease.
--- NOTE | ~2023-11-10 | US_ITS ---
EXAMINATION: US carotid duplex BI DATE: 11/11/2023 13:10 INDICATION: Syncope TECHNIQUE: Grayscale, color Doppler, and pulsed Doppler images of the cervical carotid arteries were obtained. The degree of vessel stenosis is placed in one of the following categories: normal, <50%, 5 0-69%, >=70% but less than near-occlusion, near-occlusion, or total occlusion. Note that percent sten osis relative to normal distal artery lumen diameter is indirectly measured from velocity measurement s as described by Robbi, et al. Radiology 2003; [id number]. COMPARISON: None. FINDINGS: RIGHT: The right common carotid artery (CCA) peak systolic velocity (PSV) is 86 cm/s. The right internal car otid artery (ICA) PSV is 57 cm/s. The right ICA end-diastolic velocity (EDV) is 9 cm/s. The right ICA /CCA PSV ratio is 0.7. Grayscale and color Doppler images yield an estimate of <50% diameter reductio n from plaque in the ICA. The external carotid artery (ECA) PSV is 94 cm/s. There is antegrade flow i n the right vertebral artery. LEFT: The left CCA PSV is 91 cm/s. The left ICA PSV is 62 cm/s. The left ICA EDV is 10 cm/s. The left ICA/C CA PSV ratio is 0.7. Grayscale and color Doppler images yield an estimate of <50% diameter reduction from plaque in the ICA. The ECA PSV is 147 cm/s. There is antegrade flow in the left vertebral artery . IMPRESSION: 1. <50% stenosis in the right internal carotid artery. 2. <50% stenosis in the left internal carotid artery. Reviewed, dictated and finalized at location A.
--- NOTE | ~2023-11-10 | CT_ITS ---
EXAMINATION: CT facial & cervical spine wo DATE: 11/10/2023 19:12 INDICATION: Head injury. TECHNIQUE: Computed tomography (CT) of the maxillofacial region and cervical spine was performed with out intravenous contrast. Automated exposure control and iterative reconstruction technique were empl oyed. The dose-length product was 1514.36 mGy-cm. COMPARISON: None FINDINGS: MAXILLOFACIAL CT: The orbits are normal. There is rightward deviation of the nasal septum. No fracture. There is mild m ucosal thickening of the paranasal sinuses. The mastoid air cells are normal. CERVICAL SPINE CT: There is kyphosis of cervical spine. There is 7 degrees levocurvature of cervical spine. Vertebral radha dy heights are normal. There is mildly decreased disc height at C3-C4 and severely decreased disc hei ght from C4-C5 through C6-C7. The following disc levels are specifically discussed: C2-C3: There is mild bilateral uncovertebral joint osteoarthritis. There is mild right and severe lef t facet joint osteoarthritis. There is mild left neural foraminal stenosis. There is no central canal stenosis. C3-C4: There is severe right and mild left uncovertebral joint osteoarthritis. There is severe right and moderate left facet joint osteoarthritis. There is moderate right and mild left neural foraminal stenosis. There is mild central canal stenosis. C4-C5: There is moderate right and severe left uncovertebral joint osteoarthritis. There is severe bi lateral facet joint osteoarthritis. There is mild bilateral neural foraminal stenosis. There is mild central canal stenosis. C5-C6: There is severe bilateral uncovertebral joint osteoarthritis. There is mild bilateral facet vick int osteoarthritis. There is mild bilateral neural foraminal stenosis. There is mild central canal st enosis. C6-C7: There is severe bilateral uncovertebral joint osteoarthritis. There is moderate bilateral face t joint osteoarthritis. There is mild bilateral neural foraminal stenosis. There is mild central lyly l stenosis. C7-T1: There is no uncovertebral joint osteoarthritis. There is severe bilateral facet joint osteoart hritis. There is mild bilateral neural foraminal stenosis. There is no central canal stenosis. IMPRESSION: 1. No fracture. 2. Severe cervical spondylosis. Reviewed, dictated and finalized at location E.
--- NOTE | 2023-11-10 18:22 | ECG_ITS ---
SEE SCANNED COPY FOR CONFIRMED REPORT MTDD
[2023-11-10 18:31] LABS: Basophils Absolute Auto 0.1 K/mm3 (0.0-0.1); Basophils Percent Auto 0.5 % (0.2-1.2); Eosinophils Absolute Auto 0.2 K/mm3 (0-0.3); Eosinophils Percent Auto 1.9 % (0-4.4); Hematocrit 52.4 % (42.0-52.0); Hemoglobin 17.9 g/dL (14.0-18.0); Immature Granulocyte Absolute 0.07 K/mm3 (0.00-0.031); Immature Granulocyte Percent A 0.7 % (0-0.5); Immature Platelet Fraction Pct 7.1 % (0.9-11.2); Lymphocytes Absolute Auto 1.32 K/mm3 (0.9-3.2); Lymphocytes Percent Auto 13.1 % (18.3-44.2); Mean Corpuscular HGB Conc 34.2 g/dl (32-36); Mean Corpuscular Hemoglobin 32.1 pg (26-34); Mean Corpuscular Volume 93.9 fl (80-100); Mean Platelet Volume 11.2 fl (7.4-10.4); Monocytes Absolute Auto 0.6 K/mm3 (0.1-0.6); Monocytes Percent Auto 6.2 % (2.6-8.5); Neutrophils Absolute Auto 7.8 K/mm3 (1.3-6.7); Neutrophils Percent Auto 77.6 % (45.5-73.1); Platelet Count Result 131 k/mm3 (150-375); Red Blood Count 5.58 M/mm3 (4.6-6.20); Red Cell Distribution Width 14.7 % (11.5-14.5); White Blood Count 10.1 K/mm3 (4.5-10.0)
[2023-11-10 18:40] LABS: Alanine Aminotransferase 32 U/L (6-50); Albumin Level 4.4 g/dL (3.5-5.1); Alkaline Phosphatase 86 U/L (38-126); Anion Gap 10 mmol/L (4-12); Aspartate Amino Transferase 38 U/L (17-59); Bilirubin,Total 0.9 mg/dL (0.2-1.3); Blood Urea Nitrogen 29 mg/dL (9-20); Calcium 9.6 mg/dL (8.4-10.2); Carbon Dioxide 18 mmol/L (22-30); Chloride 109 mmol/L (98-107); Estimated CRCL calculation 43 ml/min; Estimated Glomerular Filt Rate 37; Glucose 222 mg/dL (65-110); Potassium 4.4 mmol/L (3.4-5.0); Sodium 137 mmol/L (137-145)
[2023-11-10] MEDS: MORPHINE SULFATE (*CRX) 4 MG/ML INJ IV PUSH ×2 (19:12→20:54)
[2023-11-10 20:06] LABS: Troponin I < 0.012 ng/mL (0.000-0.034)
--- NOTE | 2023-11-10 20:37 | ED.GENADULT ---
HPI - General Adult General Chief complaint: Syncope Stated complaint: syncope, facial injury Time Seen by Provider: 11/10/23 18:36 History of Present Illness HPI narrative: Patient is a 73-year-old male who presents the ER with syncope and back pain. Patient reports back pain began around noon after eating fried chicken for lunch. No abdominal pain reported. He then was sitting on the porch this evening in a rocking chair when he developed sudden nausea and then lost consciousness striking his head on the ground. Unknown last tetanus shot. No extremity injury. Denies any chest pain or chest pressure. No racing of the heart. No diarrhea. Denies chronic back pain. Related Data Home Medications Medication Instructions Recorded Confirmed metformin 500 mg tablet,extended 500 mg PO DAILY 09/14/19 10/04/23 release 24 hr Novolin R Flexpen 1 unit subcut BID 01/15/21 10/04/23 multivitamin with minerals-folic 1 tablet PO DAILY 01/15/21 10/04/23 acid 0.4 mg tablet (Adult One Daily Multivitamin) empagliflozin 25 mg tablet 25 mg PO DAILY 05/04/23 10/04/23 (Jardiance) hydrochlorothiazide 25 mg tablet 25 mg PO DAILY 05/04/23 10/04/23 insulin regular human 100 unit/mL See Rx Instructions .Route .COMPLEX 05/04/23 10/04/23 injection solution (Humulin R Regular U-100 Insulin) lisinopril 5 mg tablet 5 mg PO DAILY 05/04/23 10/04/23 sodium bicarbonate 650 mg tablet 650 mg PO BID 05/04/23 10/04/23 Allergies Allergy/AdvReac Type Severity Reaction Status Date / Time No Known Allergies Allergy Verified 11/10/23 18:22 Review of Systems Review of Systems: All systems reviewed & are unremarkable except as noted in HPI and below Constitutional: Constitutional: Reports no additional constitutional complaints ENT: Reports system reviewed and no additional complaints, except as documented Cardiovascular: Cardiovascular: Reports no additional cardiovascular complaints Gastrointestinal: Gastrointestinal: Denies abdominal pain, Denies diarrhea, Reports nausea and Denies vomiting Musculoskeletal: Musculoskeletal: Reports back pain, Denies arthralgias, Denies joint swelling and Denies muscle cramps Neurologic: Reports syncope, Denies headache(s), Denies focal weakness and Denies numbness PMF Past Medical History Medical History Acrochordon Generalized weakness HTN (hypertension), benign Irritability and anger Lipoma of skin of abdomen Prostate cancer screening T2DM (type 2 diabetes mellitus) Wellness examination Surgical History Surgical History History of left knee replacement Family History Family History Father Diabetes mellitus Family history of coronary artery disease Sibling Hypertension Family history of malignant neoplasm of breast in first degree relative Other Family history of arthritis Family history of malignant neoplasm Social History Social History Social History: Patient smokes 1 pack per day but does not drink alcohol. He has daily marijuana ingestion which he smokes and eats. 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 He would like to be a full code. In the event that he is unable to make decisions for himself, he would like to have his , Rose Best to make decisions for him. Smoking packs per day: 1 Smoking cigarettes per day: 20.0 Years smoked: 1 Smoking pack-years: 1.00 Smoking status: Former smoker Tobacco type: cigarettes Second hand tobacco smoke exposure: Yes Smoking end date: 07/26/94 Alcohol intake: never Substance use: never Substance use type: does not use Living arrangements: with family Occupation/Education: retired Gender identity (if verbalized by the patient): Male Sexual Orientation (if Verbalized by the Patient): Jessenia
[2023-11-10 20:45] LABS: Appearance Urine Clear (Clear); Bacteria Urine Rare /hpf; Bilirubin Urine Negative (Negative); Blood Urine Trace (Negative); Color Urine Yellow (Yellow); Glucose Urine UA 3+ mg/dL (Negative); Ketones Urine Negative (Negative); Leukocyte Esterase Ur Negative LEU/UL (Negative); Need Manual Microscopic Reviewed; Nitrate Urine Negative (Negative); Protein Urine 1+ mg/dL (Negative); RBC Urine 0-2 /hpf (0-2); Squamous Epithelial Cell Urine None Seen /hpf (Few)
[2023-11-10 21:00] LABS: Specific Grav Ur 1.031 (1.001-1.035)
[2023-11-10 21:03] LABS: Add Urine Microscopic? YES
[2023-11-10] MEDS: TETANUS,DIPHTHERIA,AC PERTUSSIS ADULT (0.5 ML) BOOSTRIX IM (21:30)
--- NOTE | 2023-11-10 21:30 | PC.NURSE ---
no blood cultured required per EDP
[2023-11-10] MEDS: PIPERACILLN/TAZ 3.375GM/NS50ML 3.375 GM/50 ML BAG IVPB (21:33)
--- NOTE | 2023-11-10 22:12 | PM.IMHP ---
H&P: HPI History of Present Illness Date/Time: 11/10/23 22:12 Chief Complaint: syncope Narrative: Mr. Segura is a 73-year-old male with a past medical history hypertension, insulin-dependent type 2 diabetes mellitus, cerebrovascular disease, CKD stage IIIA presenting with sharp back pain and unwitnessed syncope at home. He lives at home with the . At 11:00 a.m. today he ate fried chicken for lunch and immediately developed severe sharp mid to lower back pain radiating to both sides. It was persistent, not colicky and was only relieved by the morphine given to him in the ER. He felt nauseous as well during these times but did not vomit. Last bowel movement was solid brown earlier in the day. While sitting in a rocking chair on the porch around 5:00 p.m. after about 30 minutes he had a syncopal event. It was unwitnessed, he denies any aura and did not know this was happening in so he awoke shortly after with a bloody face. [place] ER evaluation demonstrated troponin of 0.012, EKG with normal sinus rhythm and first-degree AV block without evidence of acute ischemia, urinalysis not quite indicative of infectious etiology, white blood cell count 10,100, serum creatinine 1.8, glucose 222. Abdomen pelvis CT without contrast demonstrating cholelithiasis and gallbladder distention. Head CT without contrast demonstrating old infarcts involving the bilateral basal ganglia and left thalamus with nonspecific cerebral white matter disease. CT of the cervical spine and facial bones without acute fractures. He was administered a Boostrix vaccine, Zosyn, a total of 8 mg of morphine IV. Dr. Davey (general surgery) consulted for possible acute cholecystitis and patient admitted for further monitoring and treatment. Review of Systems Review of Systems: All systems reviewed & are unremarkable except as noted in HPI and below ( subjective) [facility] Past Medical History Medical History (Updated 11/10/23 @ 22:24 by Charo Holguin MD) Acrochordon Generalized weakness HTN (hypertension), benign Irritability and anger Lipoma of skin of abdomen Prostate cancer screening Stage 3 chronic kidney disease due to type 2 diabetes mellitus T2DM (type 2 diabetes mellitus) Wellness examination Surgical History Surgical History History of left knee replacement Family History Family History Father Diabetes mellitus Family history of coronary artery disease Sibling Hypertension Family history of malignant neoplasm of breast in first degree relative Other Family history of arthritis Family history of malignant neoplasm Social History Social History Social History: Patient smokes 1 pack per day but does not drink alcohol. He has daily marijuana ingestion which he smokes and eats. 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 He would like to be a full code. In the event that he is unable to make decisions for himself, he would like to have his , Rose Best to make decisions for him. Smoking packs per day: 1 Smoking cigarettes per day: 20.0 Years smoked: 1 Smoking pack-years: 1.00 Smoking status: Former smoker Tobacco type: cigarettes Second hand tobacco smoke exposure: Yes Smoking end date: 07/26/94 Alcohol intake: never Substance use: never Substance use type: does not use Living arrangements: with family Occupation/Education: retired Gender identity (if verbalized by the patient): Male Sexual Orientation (if Verbalized by the Patient): Straight or Heterosexual Spiritual care concerns: No Meds Home Medications and Allergies Home Medications Medication Instructions Recorded Confirmed Type metformin 500 mg tablet,extended 500 mg PO DAILY 09/14/19 10/04/23 History release 24 hr Novolin R Flexpen 1 unit subcut BID 01/15/21 10/04/23 Hist
[2023-11-10 22:35] LABS: Glucose Point of Care 214 mg/dl (65-105)
[2023-11-10] MEDS: SODIUM CHLORIDE 0.9% IV 1,000 ML 125 ML IV CONT (23:08)
[2023-11-10] MEDS: MORPHINE SULFATE (*CRX) 2 MG/ML INJ IV PUSH (23:09)
--- NOTE | 2023-11-10 23:28 | ADMGEN ---
This patient, Tom Segura, was admitted to Medical Room 257-. Patient/family oriented to hospital policies and general routines including ID bracelet, bed and alarms, visiting hours, pain management, procedures, bathroom and other care routines, personal items, smoking policy, room service/diet, and visiting hours. Information on how to activate the Rapid Response Team has been discussed. Patient/Family are encouraged to report perceived risks to care and to ask questions if they do not understand what they are told or what they should do.
[2023-11-11] VITALS (14 sets, daily range): BP systolic 126–166; BP diastolic 59–84; PULSE 79–100; RESP 16–18; TEMP 36.4–37.1; O2SAT 92–100
--- NOTE | 2023-11-11 | ECHO_ITS ---
Patient Info Name: Tom Segura Age: 73 years : 1950 Gender: Male Ht: 70 in Wt: 265 lbs BSA: 2.49 m2 HR: 86 bpm BP: 144 / 62 mmHg Heart Rhythm: Sinus Rhythm Technical Quality: Fair Exam Date: 11/11/2023 9:49 AM Exam Location: Echo Lab Patient Status: Outpatient Admit Date: 11/10/2023 Staff Ordering Physician: Sahara Sr APRN Management Trainer: Beni Mendes RDCS Attending Provider: Charo Holguin MD Referring Physician: Remberto BARNEY; Exam Type: CA echo doppler w bubble study Study Info Indications R55 - Syncope and collapse Complete two-dimensional, color flow and Doppler transthoracic echocardiogram is performed with agitated saline. Contrast/Agitated Saline Contrast/Ag. Saline: Agitated Saline Amount: 14.00 ml IV Access Condition: patent with no signs of infiltration Summary 1. Left ventricular chamber dimension is normal. 2. Left ventricular systolic function is normal, estimated at 65-70%. 3. There is mildly increased left ventricular wall thickness. 4. The left ventricular diastolic function is grade I diastolic dysfunction. 5. Left atrial chamber dimension is mildly enlarged. 6. Intact interatrial septum visualized by agitated saline imaging. Left Ventricle Left ventricular chamber dimension is normal. Left ventricular systolic function is normal, estimated at 65-70%. There is mildly increased left ventricular wall thickness. The left ventricular diastolic function is grade I diastolic dysfunction. Right Ventricle Right ventricular chamber dimension is normal. Right ventricular systolic function is normal. Left Atria Left atrial chamber dimension is mildly enlarged. Right Atria Right atrial chamber dimension is normal. Atrial Septum Intact interatrial septum visualized by agitated saline imaging. Aortic Valve The aortic valve is trileaflet. There is no aortic valve sclerosis. There is no aortic valve stenosis. There is trace aortic valve regurgitation. Pulmonic Valve The pulmonic valve is normal. There is no pulmonic valve stenosis. There is trace pulmonic regurgitation. Mitral Valve There is no mitral valve stenosis. There is trace mitral valve regurgitation. The mitral valve annulus is mildly calcified. Tricuspid Valve There is no significant tricuspid valve stenosis. There is trace tricuspid valve regurgitation. Pericardium/Pleural The pericardium appears normal. There is no pericardial effusion. Inferior Vena Cava Dilated inferior vena cava with >50% collapse upon inspiration consistent with elevated right atrial pressure, 10 mmHg. Aorta The aortic root size at the sinus of Valsalva is normal. Left Ventricular Outflow Tract Name Value Normal LVOT 2D LVOT Diameter 2.0 cm LVOT Doppler LVOT Peak Gradient 4 mmHg LVOT Mean Gradient 2 mmHg LVOT VTI 19 cm LVOT VTI/AV VTI Ratio 0.9 LVOT Stroke Volume 64 ml LVOT CO 5.0 l/min LVOT CI 2.0 l/min/m2 Pulmonic Valve
[2023-11-11 00:40] LABS: Troponin I < 0.012 ng/mL (0.000-0.034)
--- NOTE | 2023-11-11 01:20 | PCRCNOTE ---
pt refused use of hospital cpap/bipap unit and stated that his nose was hurting.
[2023-11-11] MEDS: PIPERACILLN/TAZ 3.375GM/NS50ML 3.375 GM/50 ML BAG IVPB ×4 (04:18→21:24)
[2023-11-11 06:15] LABS: Basophils Percent Auto 0.3 % (0.2-1.2); Eosinophils Percent Auto 0.1 % (0-4.4); Hematocrit 51.9 % (42.0-52.0); Hemoglobin 17.5 g/dL (14.0-18.0); Immature Granulocyte Absolute 0.08 K/mm3 (0.00-0.031); Immature Granulocyte Percent A 0.5 % (0-0.5); Immature Platelet Fraction Pct 7.8 % (0.9-11.2); Lymphocytes Absolute Auto 1.42 K/mm3 (0.9-3.2); Lymphocytes Percent Auto 9.1 % (18.3-44.2); Mean Corpuscular HGB Conc 33.7 g/dl (32-36); Mean Corpuscular Hemoglobin 31.6 pg (26-34); Mean Corpuscular Volume 93.9 fl (80-100); Monocytes Absolute Auto 1.5 K/mm3 (0.1-0.6); Monocytes Percent Auto 9.7 % (2.6-8.5); Neutrophils Absolute Auto 12.5 K/mm3 (1.3-6.7); Neutrophils Percent Auto 80.3 % (45.5-73.1); Platelet Count Result 121 k/mm3 (150-375); Red Blood Count 5.53 M/mm3 (4.6-6.20); Red Cell Distribution Width 14.4 % (11.5-14.5); White Blood Count 15.5 K/mm3 (4.5-10.0)
[2023-11-11 06:27] LABS: Anion Gap 9 mmol/L (4-12); Blood Urea Nitrogen 29 mg/dL (9-20); Calcium 9.5 mg/dL (8.4-10.2); Carbon Dioxide 21 mmol/L (22-30); Chloride 109 mmol/L (98-107); Estimated CRCL calculation 48 ml/min; Estimated Glomerular Filt Rate 43; Glucose 178 mg/dL (65-110); Magnesium 1.7 mg/dL (1.6-2.3); Potassium 3.6 mmol/L (3.4-5.0); Sodium 139 mmol/L (137-145)
[2023-11-11 06:48] LABS: Glucose Point of Care 184 mg/dl (65-105)
--- NOTE | 2023-11-11 07:46 | PM.IMPN ---
Progress Note: A&P Assessment and Plan (1) Syncope: Code(s): R55 - Syncope and collapse Status: Acute (2) Acute cholecystitis: Code(s): K81.0 - Acute cholecystitis Status: Acute (3) T2DM (type 2 diabetes mellitus): Code(s): E11.9 - Type 2 diabetes mellitus without complications Status: Acute (4) Stage 3 chronic kidney disease due to type 2 diabetes mellitus: Code(s): E11.22 - Type 2 diabetes mellitus with diabetic chronic kidney disease; N18.3 - Chronic kidney disease, stage 3 (moderate) Status: Acute Plan Acute cholecystitis CT cholelithiasis suspicious for cholecystitis/gallbladder thickening WBC 15.5 Surgery consulted Lipase pending IV fluids NPO Zosyn IV Pain control Syncope Unwitnessed likely vasovagal due to the pain??? Orthostatics negative Troponin is normal EKG shows first-degree AV block sinus rhythm Continuous telemetry monitoring Echo with bubble study pending HX of CVA carotids pending Diabetes Accu-Cheks a.c. HS Hold metformin sliding scale insulin resume patient's home long-acting Hemoglobin A1c goal Diabetic diet when able Watch for hypoglycemia/hypoglycemic protocol ordered HX of HTN: Will resume home medications when tolerating oral intake/hydralazine IVP for systolic >160 HX: CKD: Stable at baseline HX CVA: Resume statin, ASA, and fenofibrate Code status: DNR/DNI/S discussed with prior provider patient is aware he will have to be full code for surgical intervention DVT prophylaxis: SCD's Stress ulcer prophylaxis: Protonix 40 daily PT/OT notes: PT/OT pending Disposition: Patient admitted for possible acute cholecystitis and syncopal episode plan will be for patient to return home when medically stable. Time Spent With Patient Time with patient: 15 - 25 minutes Subjective Date/time seen: 11/11/23 07:46 Interval history: Admission: Medical Record Mr. Segura is a? 73-year-old male with a past medical history hypertension, insulin-dependent type 2 diabetes mellitus,? cerebrovascular? disease, CKD stage IIIA presenting with sharp back pain and unwitnessed syncope at home.? He lives at home with the .? At 11:00 a.m. today he ate fried chicken for lunch and immediately developed? severe sharp mid to lower back pain? radiating to both sides.? It was persistent, not colicky and was only relieved by the morphine given to him in the ER.? He felt nauseous as well during these times but did not vomit.? Last bowel movement was solid brown earlier in the day. ? While sitting in a rocking chair on the porch around 5:00 p.m. after about 30 minutes he had a syncopal event.? It was unwitnessed, he denies any aura and did not know this was happening in so he awoke shortly after with a bloody face. ? [place] [facility] evaluation demonstrated troponin of 0.012, EKG with normal sinus rhythm and first-degree AV block without evidence of acute ischemia, urinalysis not quite indicative of infectious etiology, white blood cell count 10,100, serum creatinine 1.8, glucose 222.? Abdomen pelvis CT without contrast demonstrating cholelithiasis and gallbladder distention.? Head CT without contrast demonstrating old infarcts involving the bilateral basal ganglia and left thalamus with nonspecific cerebral white matter disease.? CT of the cervical spine and facial bones without acute fractures.? He was administered a Boostrix vaccine, Zosyn, a total of 8 mg of morphine IV.? Dr. Davey (general surgery) consulted for possible acute cholecystitis and patient admitted for further monitoring and treatment. 11/10: Patient denies any further ABD pain and requesting to eat, RUQ US pending and hepatic panel to determine if this atypical for acute cholecystitis per surgery. Patient does have a history of old infarcts, ct was negative for anything acute will get echo and carotids due to syncopal episode. Review of Systems Review of System
[2023-11-11 08:08] LABS: Lipase 78 U/L (23-300)
[2023-11-11 08:23] LABS: Glucose Point of Care 183 mg/dl (65-105)
[2023-11-11] MEDS: SODIUM CHLORIDE 0.9% IV 1,000 ML 125 ML IV CONT ×2 (08:35→16:45)
[2023-11-11] MEDS: PANTOPRAZOLE SODIUM IV 40 MG VIAL IV PUSH (08:36)
[2023-11-11 09:18] LABS: Alanine Aminotransferase 40 U/L (6-50); Albumin Level 4.2 g/dL (3.5-5.1); Alkaline Phosphatase 59 U/L (38-126); Aspartate Amino Transferase 38 U/L (17-59); Bilirubin,Total 0.9 mg/dL (0.2-1.3)
--- NOTE | 2023-11-11 10:03 | PM.CNGS ---
Assessment and Plan Assessment and plan (1) Acute cholecystitis: Code(s): K81.0 - Acute cholecystitis Status: Acute Assessment and Plan: Patient presents status post syncopal episode at home with back pain and nausea. His pain did begin after eating a fatty meal, but he denies any abdominal pain. CT scan of the abdomen and pelvis showed cholelithiasis with gallbladder distension, suggesting possible cholecystitis. This morning, the patient is no longer having any back pain or nausea. He is completely asymptomatic. His abdominal exam is completely benign. LFTs on admission were normal, but not repeated today. His white blood cell count did go up this morning to 15,000 from 10,000. It is possible that this is an atypical presentation of cholecystitis. We will order a right upper quadrant abdominal ultrasound and add hepatic panel onto labs today to further evaluate for possible acute cholecystitis. Further plan depending on workup, as he is also undergoing workup for the syncopal episode. (2) Syncope: Code(s): R55 - Syncope and collapse Status: Acute Assessment and Plan: Unwitnessed syncopal episode at home from chair to floor. Appears to have hit his face and CT of head and face negative for any acute findings. Cardiac echo and carotid duplex ordered today. (3) T2DM (type 2 diabetes mellitus): Code(s): E11.9 - Type 2 diabetes mellitus without complications Status: Acute (4) Hypertensive chronic kidney disease with stage 1 through stage 4 chronic kidney disease, or unspecified chronic kidney disease: Code(s): I12.9 - Hypertensive chronic kidney disease with stage 1 through stage 4 chronic kidney disease, or unspecified chronic kidney disease Status: Acute (5) Tobacco abuse: Code(s): Z72.0 - Tobacco use Status: Acute Plan I have discussed the patient's case and plan of care with Dr. Davey. Thank you for allowing us to see the patient in consultation and we will continue to follow along with you. History of Present Illness Consult details Consult date: 11/11/23 Reason for consult: other (Possible acute cholecystitis) Requesting physician: Abhinav Gray MD Narrative: This is a 73-year-old man with insulin-dependent type 2 diabetes mellitus, cerebrovascular disease, hypertension, CKD stage 3, who we have been asked to see in surgical consultation for possible acute cholecystitis. He presented to the ER yesterday after having a syncopal episode at home. He reports eating fried chicken for lunch and shortly after eating, he noticed generalized back pain he cannot locate a specific spot where this hurt, but reports that was ?all over his back?. No radiating symptoms. Denies any chest pain, abdominal pain, or vomiting. He did notice some nausea. He went to sit on his porch in the rocking chair and had a syncopal episode. He remembers feeling very nauseous and then he woke up on the floor with his dog licking his face. He had facial pain, as he believes that he hit his face when he fell. He has multiple abrasions to his face. He was still having back pain and nausea, and his daughter to come into the ER for evaluation. Labs in [place] [address], platelets a [id number], LFTs normal, lipase normal, troponin negative. He has chronic kidney disease with creatinine ranging from 1.6-1.9 over the past few years. Creatinine was 1.[address] negative for any acute findings, but does notice old infarcts and evidence of chronic small-vessel ischemic disease. CT facial and cervical spine negative for any acute findings. CT of the abdomen and pelvis showed cholelithiasis, gallbladder distention may be secondary to fasting or acute cholecystitis, and nonobstructing right kidney stones. He was admitted to the hospitalist service and has been started on IV fluids and IV Zosyn. He is currently NPO. He is seen on the medical floor in surgical cons
[2023-11-11 11:44] LABS: Glucose Point of Care 177 mg/dl (65-105)
[2023-11-11 17:06] LABS: Glucose Point of Care 223 mg/dl (65-105)
[2023-11-11] MEDS: INSULIN ASPART (*BKC) 100 UNITS/ML SUB-Q ×2 (17:07→20:10)
[2023-11-11 20:08] LABS: Glucose Point of Care 237 mg/dl (65-105)
[2023-11-12] VITALS (18 sets, daily range): BP systolic 132–171; BP diastolic 66–95; PULSE 64–96; RESP 16–23; TEMP 36.1–36.9; O2SAT 92–98
[2023-11-12] MEDS: PIPERACILLN/TAZ 3.375GM/NS50ML 3.375 GM/50 ML BAG IVPB ×4 (03:30→21:05)
[2023-11-12] MEDS: SODIUM CHLORIDE 0.9% IV 1,000 ML 125 ML IV CONT ×2 (03:30→18:35)
[2023-11-12 05:19] LABS: Hematocrit 48.1 % (42.0-52.0); Hemoglobin 15.9 g/dL (14.0-18.0); Immature Platelet Fraction Pct 6.7 % (0.9-11.2); Mean Corpuscular HGB Conc 33.1 g/dl (32-36); Mean Corpuscular Hemoglobin 31.4 pg (26-34); Mean Corpuscular Volume 94.9 fl (80-100); Mean Platelet Volume 11.7 fl (7.4-10.4); Platelet Count Result 100 k/mm3 (150-375); Red Blood Count 5.07 M/mm3 (4.6-6.20); Red Cell Distribution Width 14.7 % (11.5-14.5)
[2023-11-12 05:39] LABS: Alanine Aminotransferase 27 U/L (6-50); Albumin Level 3.6 g/dL (3.5-5.1); Alkaline Phosphatase 42 U/L (38-126); Anion Gap 4 mmol/L (4-12); Aspartate Amino Transferase 24 U/L (17-59); Bilirubin,Total 1.2 mg/dL (0.2-1.3); Blood Urea Nitrogen 26 mg/dL (9-20); Calcium 8.9 mg/dL (8.4-10.2); Carbon Dioxide 23 mmol/L (22-30); Chloride 112 mmol/L (98-107); Estimated CRCL calculation 46 ml/min; Estimated Glomerular Filt Rate 40; Glucose 145 mg/dL (65-110); Potassium 3.8 mmol/L (3.4-5.0); Sodium 139 mmol/L (137-145)
[2023-11-12 08:04] LABS: Glucose Point of Care 154 mg/dl (65-105)
[2023-11-12] MEDS: PANTOPRAZOLE SODIUM IV 40 MG VIAL IV PUSH (09:18)
[2023-11-12] MEDS: LACTATED RINGERS 1,000 ML 30 ML IV CONT ×2 (11:40→15:45)
--- NOTE | 2023-11-12 12:04 | PCCDE ---
11/11: 11:50 am Attempted to see pt due to DM admission screen indicating not SMBG. Pt N/A - in surgery for cholecystectomy
--- NOTE | 2023-11-12 12:49 | PM.IMPN ---
Progress Note: A&P Assessment and Plan (1) Syncope: Code(s): R55 - Syncope and collapse Status: Acute (2) Acute cholecystitis: Code(s): K81.0 - Acute cholecystitis Status: Acute (3) T2DM (type 2 diabetes mellitus): Code(s): E11.9 - Type 2 diabetes mellitus without complications Status: Acute (4) Stage 3 chronic kidney disease due to type 2 diabetes mellitus: Code(s): E11.22 - Type 2 diabetes mellitus with diabetic chronic kidney disease; N18.3 - Chronic kidney disease, stage 3 (moderate) Status: Acute Plan Acute cholecystitis CT cholelithiasis suspicious for cholecystitis/gallbladder thickening WBC 15.5>9.2 Surgery consulted Lipase WNL IV fluids NPO Zosyn IV Pain control Syncope Unwitnessed likely vasovagal due to the pain??? Orthostatics negative Troponin is normal EKG shows first-degree AV block sinus rhythm Continuous telemetry monitoring Echo with bubble study Diastloic grade 1 heart failure LVEF 65-70% HX of CVA carotids <50% bilateral Diabetes Accu-Cheks a.c. HS Hold metformin sliding scale insulin resume patient's home long-acting Hemoglobin A1c goal Diabetic diet when able Watch for hypoglycemia/hypoglycemic protocol ordered HX of HTN: Will resume home medications when tolerating oral intake/hydralazine IVP for systolic >160 HX: CKD: Stable at baseline HX CVA: Resume statin, ASA, and fenofibrate Code status: DNR/DNI/S discussed with prior provider patient is aware he will have to be full code for surgical intervention DVT prophylaxis: SCD's Stress ulcer prophylaxis: Protonix 40 daily PT/OT notes: PT/OT pending Disposition: Patient admitted for possible acute cholecystitis and syncopal episode plan will be for patient to return home when medically stable. Time Spent With Patient Time with patient: 15 - 25 minutes Subjective Date/time seen: 11/12/23 12:49 Interval history: Admission: Medical Record Mr. Segura is a? 73-year-old male with a past medical history hypertension, insulin-dependent type 2 diabetes mellitus,? cerebrovascular? disease, CKD stage IIIA presenting with sharp back pain and unwitnessed syncope at home.? He lives at home with the .? At 11:00 a.m. today he ate fried chicken for lunch and immediately developed? severe sharp mid to lower back pain? radiating to both sides.? It was persistent, not colicky and was only relieved by the morphine given to him in the ER.? He felt nauseous as well during these times but did not vomit.? Last bowel movement was solid brown earlier in the day. ? While sitting in a rocking chair on the porch around 5:00 p.m. after about 30 minutes he had a syncopal event.? It was unwitnessed, he denies any aura and did not know this was happening in so he awoke shortly after with a bloody face. ? [place] [facility] evaluation demonstrated troponin of 0.012, EKG with normal sinus rhythm and first-degree AV block without evidence of acute ischemia, urinalysis not quite indicative of infectious etiology, white blood cell count 10,100, serum creatinine 1.8, glucose 222.? Abdomen pelvis CT without contrast demonstrating cholelithiasis and gallbladder distention.? Head CT without contrast demonstrating old infarcts involving the bilateral basal ganglia and left thalamus with nonspecific cerebral white matter disease.? CT of the cervical spine and facial bones without acute fractures.? He was administered a Boostrix vaccine, Zosyn, a total of 8 mg of morphine IV.? Dr. Davey (general surgery) consulted for possible acute cholecystitis and patient admitted for further monitoring and treatment. 11/10: Patient denies any further ABD pain and requesting to eat, RUQ US pending and hepatic panel to determine if this atypical for acute cholecystitis per surgery. Patient does have a history of old infarcts, ct was negative for anything acute will get echo and carotids due to syncopal episode.
--- NOTE | 2023-11-12 12:52 | WPDHPUPDATE1 ---
History and Physical Update Update Date/Time: 11/12/23 12:52 History and Physical has been reviewed, including an updated exam of the patient. There are NO changes in the patient's condition. Risks, benefits, and alternatives have been discussed and questions answered. Patient agrees to proceed with procedure.
--- NOTE | 2023-11-12 12:58 | WPDANESEPPF ---
Anes - Initial Pre Proc Eval Procedure: Operation Date: 11/12/23 13:00 Proposed Procedures p Laparoscopic Cholecystectomy, Possible Open - Yeison Davey MD Date/Time: 11/12/23 12:58 Surgeon: Charo Holguin MD Pre Op Diagnosis: Syncope,Cholecystitis Patient Data Age: 73 Gender: M Height: 1.78 m Weight: 120 kg Last Vital Signs Temp 98.3 F 11/12/23 12:15 Pulse 68 11/12/23 12:15 Resp 16 11/12/23 12:15 BP 158/73 H 11/12/23 12:15 Pulse Ox 98 11/12/23 12:15 O2 Del Method Room Air 11/12/23 12:15 Allergies Allergy/AdvReac Type Severity Reaction Status Date / Time No Known Allergies Allergy Verified 11/12/23 12:14 Home Medications Medication Instructions Recorded Confirmed Type metformin 500 mg tablet,extended 500 mg PO BID 09/14/19 11/10/23 History release 24 hr multivitamin with minerals-folic 1 tablet PO DAILY 01/15/21 11/10/23 History acid 0.4 mg tablet (Adult One Daily Multivitamin) sildenafil 25 mg tablet 25 mg PO DAILY PRN sexual activity 03/30/23 11/10/23 Rx #10 tabs empagliflozin 25 mg tablet 25 mg PO DAILY 05/04/23 11/10/23 History (Jardiance) hydrochlorothiazide 25 mg tablet 25 mg PO DAILY 05/04/23 11/10/23 History lisinopril 5 mg tablet 5 mg PO DAILY 05/04/23 11/10/23 History escitalopram oxalate 10 mg tablet 10 mg PO DAILY #90 tabs 07/01/23 11/10/23 Rx (Lexapro) fenofibrate 160 mg tablet 80 mg PO DAILY #45 tabs 08/18/23 11/10/23 Rx aspirin 81 mg tablet,delayed 162 mg PO HS 11/10/23 11/10/23 History release atorvastatin 80 mg tablet 80 mg PO HS 11/10/23 11/10/23 History carvedilol 25 mg tablet 25 mg PO BID 11/10/23 11/10/23 History icosapent ethyl 1 gram capsule 2 g PO HS 11/10/23 11/10/23 History icosapent ethyl 1 gram capsule 1 g PO DAILY 11/10/23 11/10/23 History (Vascepa) insulin NPH isoph U-100 human 100 45 unit subcut BID 11/10/23 11/10/23 History unit/mL (3 mL) subcutaneous pen (Humulin N NPH U-100 Insulin KwikPen) insulin regular human 100 unit/mL 1 unit subcut 4XW 11/10/23 11/10/23 History injection solution (Humulin R Regular U-100 Insulin) Laboratory Tests 11/11/23 11/11/23 11/11/23 16:14 16:57 19:39 WBC RBC Hgb Hct MCV MCH MCHC RDW Plt Count MPV % Immature Plt Fraction Sodium Potassium Chloride Carbon Dioxide Anion Gap BUN Creatinine Estim Creat Clear Calc Estimated GFR Glucose POC Capillary Glucose 223 H mg/dl 237 H mg/dl (65-105) (65-105) Calcium Total Bilirubin AST ALT Alkaline Phosphatase Total Protein Albumin Blood Type O Positive Antibody Screen Negative 11/12/23 11/12/23 11/12/23 04:51 04:52 07:56 WBC 9.0 K/mm3 (4.5-10.0) RBC 5.07 M/mm3 (4.6-6.20) Hgb 15.9 g/dL (14.0-18.0) Hct 48.1 % (42.0-52.0) MCV 94.9 fl (80-100) MCH 31.4 pg (26-34) MCHC 33.1 g/dl (32-36) RDW 14.7 H % (11.5-14.5) Plt Count 100 L k/mm3 (150-375) MPV 11.7 H fl (7.4-10.4) % Immature Plt Fraction 6.7 % (0.9-11.2) Sodium 139 mmol/L (137-145) Potassium 3.8 mmol/L (3.4-5.0) Chloride 112 H mmol/L (98-107) Carbon Dioxide 23 mmol/L (22-30) Anion Gap 4 mmol/L (4-12) BUN 26 H mg/dL (9-20) Creatinine 1.70 H mg/dL (0.7-1.3) Estim Creat Clear Calc 46 ml/min Estimated GFR 40 L (59 - ) Glucose 145 H mg/dL (65-110) POC Capillary Glucose 154 H mg/dl (65-105) Calcium 8.9 mg/dL (8.4-10.2)
[2023-11-12] MEDS: BUPivacaine HCL 0.5% 10 ML AMP 20 ML INFILTRATE (13:53)
[2023-11-12] MEDS: LIDO 1%/EPINEPHRINE 1:100,000 50 ML VIAL 20 ML INFILTRATE (13:59)
--- NOTE | 2023-11-12 15:21 | W.PM.PROC2 ---
Procedure Note - Detailed Date of Procedure 11/12/23 Pre-op Diagnosis Syncope,Cholecystitis Post-op Diagnosis Same Procedure Performed Laparoscopic cholecystectomy Surgeon Yeison Davey MD Anesthesia General Indications Patient is a 73-year-old gentleman who was admitted to the hospital with a syncopal episode where he fell and hit his head. He had a single subQ was having severe back pain after eating fried chicken. Workup was gallbladder revealed thickened gallbladder with a gallbladder wall about 9mm in diameter. Gallstones were noted. Had elevated white blood count 71004. He appears to have at least chronic cholecystitis but perhaps acute on chronic cholecystitis due to gallstones. He presents now for a semi-urgent laparoscopic cholecystectomy Findings Patient had findings of chronic cholecystitis with dense adhesions chronic nature of his omentum to his gallbladder. He also adhesions of the omentum to the liver. More acutely he seemed to have moderate to cholecystitis with acute inflammation of gallbladder edema of the gallbladder wall. Gallstones were noted. Description of Procedure After informed consent was obtained patient brought to the operating room was placed supine position and general endotracheal anesthesia was administered. The abdomen was then prepped and draped usual sterile fashion. A time-out was then performed correctly identifying the patient as well as procedure to be performed. He was already on scheduled IV antibiotics. I proceeded to into the abdomen left upper quadrant utilizing a 5mm Optiview port. Once inside the abdomen insufflated to adequate pneumoperitoneum of 15mmHg of CO2. There were no adhesions around the area the umbilicus we placed a 5mm periumbilical trocar port and looking to the upper portions and placed a 10mm epigastric trocar port and then 2 more 5mm right right subcostal trocar ports working through these ports I was able to identify the dome of the gallbladder which was the only part of the gallbladder I could see. The rest the gallbladder was enveloped in omental adhesions. I then proceeded to strip down the omental adhesions utilizing electrocautery off of the liver edge and gallbladder. I was then able to hold the gallbladder at the dome and elevate the gallbladder over the right half liver towards the right shoulder. I was then able to further strip down omental adhesions to the infundibular gallbladder then placed in laparoscopic grasper on the infundibulum. I then dissected down on the infundibular gallbladder to identify what appeared to be the cystic duct. Cystic duct was then dissected out circumferentially. The cystic artery was then identified dissected out circumferentially as well. Posterior wall the gallbladder the infant was dissected free of the liver into the critical view was obtained. At this point I then stripped the cystic duct make sure there was no stones within it and then placed 2 clips proximally on the cystic duct and 2 clips distally high on infundibular gallbladder. I then divided the cystic duct with Endo Segundo. In a similar fashion the cystic artery clipped and divided as well. Gallbladder was then resected off the liver utilized electrocautery. There was a dissection there was spillage of bile but no gallstones from the gallbladder. Once the gallbladder was free from liver is placed into an Endo-Catch bag and brought out through the epigastric port site. Gallbladder and the large gallstone within it were sent to pathology for examination. I then irrigated out the right upper quadrant the abdomen gallbladder fossa with sterile saline solution. Hemostasis in the liver bed and the omentum was then achieved utilizing electrocautery. I then placed granulated Surgicel powder with a laparoscopic applicator onto the gallbladder liver bed and in the omentum just in that area. I then placed a 15 Kinyarwanda round Tee drain in the area the gallbladder fossa and brought out thr
[2023-11-12 15:48] LABS: Glucose Point of Care 245 mg/dl (65-105)
[2023-11-12 17:09] LABS: Glucose Point of Care 241 mg/dl (65-105)
[2023-11-12] MEDS: INSULIN HUMAN NPH (*BKC) 100 UNITS/ML 45 UNITS SUB-Q (17:50)
[2023-11-12] MEDS: hydrALAZINE HCL 20 MG/ML VIAL IV PUSH (17:50)
[2023-11-12] MEDS: INSULIN ASPART (*BKC) 100 UNITS/ML SUB-Q (17:51)
[2023-11-12] MEDS: ASPIRIN 81 MG ENTERIC TABLET 162 MG PO (21:03)
[2023-11-12] MEDS: carvediloL 25 MG TABLET PO (21:03)
[2023-11-12] MEDS: ATORVASTATIN 40 MG TABLET 80 MG PO (21:03)
[2023-11-12] MEDS: OMEGA 3 POLYUNSAT FATTY ACIDS 1 GM CAP 2 GM PO (21:04)
[2023-11-12 21:29] LABS: Glucose Point of Care 168 mg/dl (65-105)
[2023-11-13] VITALS (11 sets, daily range): BP systolic 120–144; BP diastolic 57–65; PULSE 64–94; RESP 17–18; TEMP 36.1–36.4; O2SAT 93–95
[2023-11-13] MEDS: SODIUM CHLORIDE 0.9% IV 1,000 ML 125 ML IV CONT (03:15)
[2023-11-13] MEDS: PIPERACILLN/TAZ 3.375GM/NS50ML 3.375 GM/50 ML BAG IVPB ×2 (04:29→11:07)
[2023-11-13 04:35] LABS: Basophils Percent Auto 0.3 % (0.2-1.2); Eosinophils Percent Auto 0.2 % (0-4.4); Hematocrit 45.5 % (42.0-52.0); Hemoglobin 14.9 g/dL (14.0-18.0); Immature Granulocyte Absolute 0.04 K/mm3 (0.00-0.031); Immature Granulocyte Percent A 0.4 % (0-0.5); Immature Platelet Fraction Pct 6.2 % (0.9-11.2); Lymphocytes Absolute Auto 1.27 K/mm3 (0.9-3.2); Lymphocytes Percent Auto 12.5 % (18.3-44.2); Mean Corpuscular HGB Conc 32.7 g/dl (32-36); Mean Corpuscular Hemoglobin 31.4 pg (26-34); Mean Corpuscular Volume 95.8 fl (80-100); Mean Platelet Volume 11.1 fl (7.4-10.4); Monocytes Absolute Auto 0.7 K/mm3 (0.1-0.6); Monocytes Percent Auto 7.3 % (2.6-8.5); Neutrophils Absolute Auto 8.1 K/mm3 (1.3-6.7); Neutrophils Percent Auto 79.3 % (45.5-73.1); Platelet Count Result 109 k/mm3 (150-375); Red Blood Count 4.75 M/mm3 (4.6-6.20); Red Cell Distribution Width 14.4 % (11.5-14.5); White Blood Count 10.2 K/mm3 (4.5-10.0)
[2023-11-13 04:44] LABS: Alanine Aminotransferase 40 U/L (6-50); Albumin Level 3.4 g/dL (3.5-5.1); Alkaline Phosphatase 35 U/L (38-126); Anion Gap 4 mmol/L (4-12); Aspartate Amino Transferase 45 U/L (17-59); Bilirubin,Total 0.9 mg/dL (0.2-1.3); Blood Urea Nitrogen 26 mg/dL (9-20); Calcium 8.8 mg/dL (8.4-10.2); Carbon Dioxide 21 mmol/L (22-30); Chloride 112 mmol/L (98-107); Estimated CRCL calculation 55 ml/min; Estimated Glomerular Filt Rate 50; Glucose 102 mg/dL (65-110); Potassium 3.8 mmol/L (3.4-5.0); Sodium 137 mmol/L (137-145)
[2023-11-13 08:24] LABS: Glucose Point of Care 103 mg/dl (65-105)
[2023-11-13] MEDS: EMPAGLIFLOZIN 25 MG TABLET PO (09:19)
[2023-11-13] MEDS: lisinopriL 5 MG TABLET PO (09:19)
[2023-11-13] MEDS: hydroCHLOROthiazide 25 MG TABLET PO (09:19)
[2023-11-13] MEDS: ESCITALOPRAM OXALATE 10 MG TABLET PO (09:19)
[2023-11-13] MEDS: AMOXICILLIN/CLAVULANATE K 875-125 MG TAB 1 TABLET PO (09:20)
[2023-11-13] MEDS: carvediloL 25 MG TABLET PO (09:20)
[2023-11-13] MEDS: THERAPEUTIC MULTIVITAMINS/MINERALS TAB (*BKC) 1 TABLET PO (09:20)
[2023-11-13] MEDS: FENOFIBRATE 160 MG TABLET 80 MG PO (09:20)
[2023-11-13] MEDS: OMEGA 3 POLYUNSAT FATTY ACIDS 1 GM CAP PO (09:20)
[2023-11-13] MEDS: ENOXAPARIN 40 MG/0.4 ML SYRINGE SUB-Q (09:25)
[2023-11-13] MEDS: PANTOPRAZOLE SODIUM IV 40 MG VIAL IV PUSH (09:25)
--- NOTE | 2023-11-13 10:32 | PM.PNGS ---
Progress Note: A&P Assessment and Plan (1) Acute cholecystitis: Code(s): K81.0 - Acute cholecystitis Status: Acute Assessment and Plan: Doing well from surgical standpoint. OK to discharge today. Will remove drain prior to discharge. Follow up with Dr. Davey in 2 weeks. Subjective Subjective Date/Time Seen: 11/13/23 10:32 Interval history: Tolerating diet. Pain controlled. Exam GI: Inspection: incision (intact with glue) and other (GUSTAVO serosanguinous) GI Palp: Yes Soft to palpation and Yes Tenderness to palpation present (GI) (incisional) Objective Data Vital Signs Vital Signs: Vital Signs - 24 hr 11/12/23 12:15 11/12/23 15:30 11/12/23 15:45 Temperature 36.8 C 36.9 C Pulse Rate 68 94 92 Respiratory Rate 16 23 H 22 H Blood Pressure 158/73 H 171/94 H 167/95 H Pulse Oximetry 98 97 96 Oxygen Delivery Room Air Simple Face Mask Simple Face Mask Oxygen Flow Rate 8 8 11/12/23 16:00 11/12/23 16:15 11/12/23 16:26 Temperature Pulse Rate 91 90 89 Respiratory Rate 21 H 21 H 20 Blood Pressure 167/92 H 160/84 H 158/83 H Pulse Oximetry 92 92 92 Oxygen Delivery Nasal Cannula Nasal Cannula Nasal Cannula Oxygen Flow Rate 2 2 2 11/12/23 16:45 11/12/23 17:00 11/12/23 17:34 Temperature 36.3 C L 36.1 C L 36.2 C L Pulse Rate 87 88 96 Respiratory Rate 17 18 20 Blood Pressure 158/86 H 150/76 H 171/89 H Pulse Oximetry 96 95 95 Oxygen Delivery Oxygen Flow Rate 11/12/23 18:28 11/12/23 20:21 11/12/23 21:03 Temperature 36.1 C L Pulse Rate 93 86 Respiratory Rate 17 Blood Pressure 160/81 H Pulse Oximetry 95 95 Oxygen Delivery Nasal Cannula Oxygen Flow Rate 2 11/12/23 21:42 11/12/23 20:00 11/13/23 00:00 Temperature 36.2 C L Pulse Rate 91 86 79 Respiratory Rate 20 Blood Pressure 158/74 H Pulse Oximetry 95 Oxygen Delivery Oxygen Flow Rate 11/13/23 05:40 11/13/23 05:40 11/13/23 05:43 Temperature 36.4 C Pulse Rate 67 Respiratory Rate 18 Blood Pressure 133/65 133/65 121/57 L Pulse Oximetry 94 Oxygen Delivery Oxygen Flow Rate 11/13/23 05:45 11/13/23 04:00 11/13/23 07:35 Temperature Pulse Rate 64 Respiratory Rate Blood Pressure 120/62 Pulse Oximetry 94 Oxygen Delivery Room Air Oxygen Flow Rate 11/13/23 09:20 11/13/23 09:09 Temperature 36.1 C L Pulse Rate 94 65 Respiratory Rate 17 Blood Pressure 144/57 H Pulse Oximetry 93 Oxygen Delivery Oxygen Flow Rate Intake/Output Intake/Output: Intake & Output 11/10/23 11/11/23 11/12/23 11/13/23 23:59 23:59 23:59 23:59 Intake Total 50 2730 3040 1590 Output Total 200 610 Balance 50 5760 9140 1590 Meds/Results Medications: Active Medications Generic Name Dose Route Start Last Admin Trade Name Freq PRN Reason Stop Dose Admin Acetaminophen 1,000 mg 11/12/23 15:16 Acetaminophen 500 Mg Tablet PO Q6H PRN Mild Pain (1-3) or Fever Hydrocodone Bitart/Acetaminophen 1 tab 11/12/23 15:16 Hydrocodone/Acetaminophen (*Crx) 5-325 Mg Tablet PO Q4H PRN Pain Rated 4-6 Amoxicillin/Clavulanate Potassium 1 tablet 11/13/23 09:00 11/13/23 09:20 Amoxicillin/Clavulanate K 875-125 Mg Tab PO 1 tablet Q12HR WINTER Administration Aspirin 162 mg 11/12/23 21:00 11/12/23 21:03 Aspirin 81 Mg Enteric Tablet PO 162 mg HS WINTER Administration Atorvastatin Calcium 80 mg 11/12/23 21:00 11/12/23 21:03 Atorvastatin 40 Mg Tablet PO 80 mg HS WINTER Administration Carvedilol 25 mg 11/12/23 21:00 11/13/23 09:20 Carvedilol 25 Mg Tablet PO 25 mg Q12HR WINTER Administration Dextrose 12.5 gm 11/10/23 22:13 Dextrose 50% 25 Gm/50 Ml Syringe IV PUSH PRN PRN Hypoglycemia Protocol Empagliflozin 25 mg 11/13/23 09:00 11/13/23 09:19 Empagliflozin 25 Mg Tablet PO 25 mg DAILY WINTER Administration Enoxaparin Sodium 40 mg 11/13/23 09:00 11/13/23 09:25 Enoxaparin 40 Mg/0.4 Ml Syring
--- NOTE | 2023-11-13 11:03 | PM.DS ---
DS: Admitting Diagnosis Discharge Date 11/13/2023 Admitting Diagnosis Syncope/Acute cholecystitis DS: Discharge Diagnosis Discharge Diagnosis (1) Syncope: Code(s): R55 - Syncope and collapse Status: Acute (2) Acute cholecystitis: Code(s): K81.0 - Acute cholecystitis Status: Acute (3) T2DM (type 2 diabetes mellitus): Code(s): E11.9 - Type 2 diabetes mellitus without complications Status: Acute (4) Stage 3 chronic kidney disease due to type 2 diabetes mellitus: Code(s): E11.22 - Type 2 diabetes mellitus with diabetic chronic kidney disease; N18.3 - Chronic kidney disease, stage 3 (moderate) Status: Acute Plan Acute cholecystitis CT cholelithiasis suspicious for cholecystitis/gallbladder thickening WBC 15.5>9.2 Surgery consulted Lipase WNL IV fluids NPO Zosyn IV Pain control Syncope Unwitnessed likely vasovagal due to the pain??? Orthostatics negative Troponin is normal EKG shows first-degree AV block sinus rhythm Continuous telemetry monitoring Echo with bubble study Diastloic grade 1 heart failure LVEF 65-70% HX of CVA carotids <50% bilateral Diabetes Accu-Cheks a.c. HS Hold metformin sliding scale insulin resume patient's home long-acting Hemoglobin A1c goal Diabetic diet when able Watch for hypoglycemia/hypoglycemic protocol ordered HX of HTN: Will resume home medications when tolerating oral intake/hydralazine IVP for systolic >160 HX: CKD: Stable at baseline HX CVA: Resume statin, ASA, and fenofibrate Disposition: Discharged to home DS: Summary Hospital Course Reason for hospitalization: Syncope/Acute cholecystitis Hospital Course: Admission: Medical Record Mr. Segura is a? 73-year-old male with a past medical history hypertension, insulin-dependent type 2 diabetes mellitus,? cerebrovascular? disease, CKD stage IIIA presenting with sharp back pain and unwitnessed syncope at home.? He lives at home with the .? At 11:00 a.m. today he ate fried chicken for lunch and immediately developed? severe sharp mid to lower back pain? radiating to both sides.? It was persistent, not colicky and was only relieved by the morphine given to him in the ER.? He felt nauseous as well during these times but did not vomit.? Last bowel movement was solid brown earlier in the day. ? While sitting in a rocking chair on the porch around 5:00 p.m. after about 30 minutes he had a syncopal event.? It was unwitnessed, he denies any aura and did not know this was happening in so he awoke shortly after with a bloody face. ? [facility] evaluation demonstrated troponin of 0.012, EKG with normal sinus rhythm and first-degree AV block without evidence of acute ischemia, urinalysis not quite indicative of infectious etiology, white blood cell count 10,100, serum creatinine 1.8, glucose 222.? Abdomen pelvis CT without contrast demonstrating cholelithiasis and gallbladder distention.? Head CT without contrast demonstrating old infarcts involving the bilateral basal ganglia and left thalamus with nonspecific cerebral white matter disease.? CT of the cervical spine and facial bones without acute fractures.? He was administered a Boostrix vaccine, Zosyn, a total of 8 mg of morphine IV.? Dr. Davey (general surgery) consulted for possible acute cholecystitis and patient admitted for further monitoring and treatment. Patient denies any further ABD pain and requesting to eat, RUQ US pending and hepatic panel to determine if this atypical for acute cholecystitis per surgery.? Patient does have a history of old infarcts, ct was negative for anything acute will get echo and carotids due to syncopal episode.??Patient underwent laparoscopic cholecystectomy tolerated well no complications reported.? Patient tolerating all oral intake with no complaints. As per patient's syncopal episode carotid shows <50% stenosis bilateral, echocardiogram shows grade 1 diastolic dy
[2023-11-13 12:00] LABS: Glucose Point of Care 196 mg/dl (65-105)
== END 2023-11-13 14:28 | disposition home or self-care (01) | DRG 419 ==
LOC: ANHED 21:35 → ANH2MED 21:41
PROVIDERS: Emergency Medicine; Nurse Practitioner Family; Surgery; Admitting Provider General Practice; Emergency Provider Emergency Medicine; PCP Family Medicine; Visit Provider Nurse Practitioner Family
PROC: 0FT44ZZ Resection of Gallbladder, Percutaneous Endoscopic Approach (ICD-10-PCS; CPT 47562; principal; 2023-11-12 13:00)
DX: K80.12 Calculus of gallbladder with acute and chronic cholecystitis without obstruction (principal); E11.22 Type 2 diabetes mellitus with diabetic chronic kidney disease; F17.210 Nicotine dependence, cigarettes, uncomplicated; I44.0 Atrioventricular block, first degree; I12.9 Hypertensive chronic kidney disease with stage 1 through stage 4 chronic kidney disease, or unspecified chronic kidney disease; N18.31 Chronic kidney disease, stage 3a; K82.8 Other specified diseases of gallbladder; R55 Syncope and collapse; Z79.84 Long term (current) use of oral hypoglycemic drugs; Z79.4 Long term (current) use of insulin; Z79.82 Long term (current) use of aspirin; Z96.652 Presence of left artificial knee joint; Z86.73 Personal history of transient ischemic attack (TIA), and cerebral infarction without residual deficits; Z66 Do not resuscitate
CPT/HCPCS: 36415; 70450; 70486; 71045; 72125; 74176; 76705; 80048; 80053; 80076; 81001; 82948; 83690; 83735; 84484; 85025; 85027; 85055; 85610; 86850; 86900; 86901; 87077; 87086; 87088; 87181; 88304; 90471; 90715; 93005; 93306; 93880; 96365; 96366; 96375; 96376; 99285; A9270; C9113; G0378; J0360; J1100; J1650; J1815; J2270; J2405; J2543; J2704; J3010; J7030; J7120

== ENCOUNTER 2024-03-09 07:23 | Outpatient (RCR) | payer MEDICARE, SELFPAY ==
[2024-02-10 14:26] VITALS: BMI 37.3
== END 2024-05-02 12:00 | disposition home or self-care (01) ==
LOC: ANHWOC 07:23
PROVIDERS: PCP Family Medicine; Visit Provider Family Medicine
DX: T24.209A Burn of second degree of unspecified site of unspecified lower limb, except ankle and foot, initial encounter (principal); Z48.00 Encounter for change or removal of nonsurgical wound dressing
CPT/HCPCS: 99212; 99213; 99215; G0463

== ENCOUNTER 2024-12-07 11:34 | Outpatient (CLI) | payer MEDICARE, SELFPAY ==
--- NOTE | ~2024-12-07 | MR_ITS ---
MRI of the brain Clinical History: Gait abnormality Technique: Axial and sagittal T1-weighted images were acquired. These were followed by axial T2-weigh harika, diffusion weighted, gradient, and FLAIR images. Following intravenous administration of 20 cc Mu ltiHance gadolinium, T1-weighted fat-sat imaging was performed in the axial and coronal planes. Findings: There is no acute infarct, internal hemorrhage or mass lesion. There are severe chronic whi te matter changes in the periventricular white matter bilaterally with small chronic lacunar infarct in the bilateral basal ganglia/periventricular white matter. Ventricles and subarachnoid spaces are dilated. Orbits are unremarkable. Paranasal sinuses and mastoi d air cells are clear. Major flow voids are intact. Sagittal midline structures are intact. No abnormal postcontrast enhancement identified. IMPRESSION: No acute abnormality. Severe chronic microvascular ischemic change with small chronic lacunar infarcts, as detailed above. Reviewed, dictated and finalized at [facility]. IMPRESSION: No acute abnormality. Severe chronic microvascular ischemic change with small chronic lacunar infarct s, as detailed above.
--- OUTSIDE RECORDS SUMMARY | 2024-12-07 11:40 | XMS_ITS | Clinical Summary ---
Author Organization [facility] Address [facility] [place] [address] Care Team Providers Care Cookie Mixer Helper Name Role Phone Unavailable Primary Care Provider Unavailabl e Social History Tobacco Use Types Packs/Day Years Used Date Smoking Tobacco: Former Sex and Gender Information Value Date Recorded Sex Assigned at Not on file Legal Sex Male 11:46 PM CDT Gender Identity Not on file Sexual Orientation Not on file Last Filed Vital Signs Vital Sign Reading Time Taken Comments Blood Pressure 124/72 09/21/2016 1:04 PM SUPPLY CHAIN DEVELOPMENT MANAGER Pulse 88 09/21/2016 1:04 PM SUPPLY CHAIN DEVELOPMENT MANAGER Temperature - - Respiratory Rate - - Oxygen Saturation - - Inhaled Oxygen Concentration - - Weight 124.7 kg (275 lb) 09/21/2016 1:04 PM SUPPLY CHAIN DEVELOPMENT MANAGER Height 177.8 cm (5' 10 ) 06/26/2015 1:09 PM SUPPLY CHAIN DEVELOPMENT MANAGER Body Mass Index 39.46 06/26/2015 1:09 PM SUPPLY CHAIN DEVELOPMENT MANAGER Plan of Treatment Health Maintenance Due Date Last Done Comments Colorectal Cancer Screening Colonoscopy (10 Years) 1950 Hepatitis C 1968 Pneumococcal Vaccine: 50+ Years (1 of 1 - PCV) 2000 Zoster Vaccines (1 of 2) 2000 DTaP, Tdap and Td Vaccines ( 1 - Tdap) 01/13/2005 01/12/2005, 12/12/1997 COVID-19 Vaccine ( - 2023-2 5 season) 2024 RSV Immunization or 60+ Years (1 - 1-dose 75+ series) 2025 Meningococcal B Vaccine Aged Out No l onger eligible based on patient's age to complete this topic Meningococcal Vaccine Aged Out No abdelrahman peyton eligible based on patient's age to complete this topic RSV Immunizations Under 20 Months Aged Out No longer eligible b ased on patient's age to complete this topic Procedures Procedure Name Priority Date/Time Associated Diagnosis Comments COLONOSCOPY Routine SUPPLY CHAIN DEVELOPMENT MANAGER from Last 3 Months or Most Recently Relevant to Health Maintenance Results * Colonoscopy ( SUPPLY CHAIN DEVELOPMENT MANAGER) Narrative [facility] TO EPIC CONVERSION - SUPPLY CHAIN DEVELOPMENT MANAGER Documented hx of procedure Procedure Note , Generic Conversion, - 05/29/2018 Documented hx of procedure us Generic Conversion Md [facility] PROCEDURE ORDERABLES Final Result [facility] TO EPIC CONVERSION from Last 3 Months or Most Recently Relevant to Health Maintenance
--- OUTSIDE RECORDS SUMMARY | 2024-12-07 11:40 | XMS_ITS | Clinical Summary ---
Author Organization [facility] Address [address] [place] [address] Care Team Providers Care Prosthetics Technician Name Role Phone Shekhar Gannon MD Primary Care Provider Kian Ly MD, Amari Unavailable [phone]- [phone] Allergies No known active allergies Medications carvedilol (COREG) 25 mg tablet Take 1 tablet (25 mg total) by mouth 2 (two) times a day Active fenofibrate (TRIGLIDE) 160 mg tablet 0.5 tablets (80 mg total) Active triamterene-hydr oCHLOROthiazide (MAXZIDE,DYAZIDE ) 37.5-25 mg per tablet/capsule TAKE 1 CAPSULE Every morning listed as 37.5/12 mg Active lisinopril (PRINIVIL,ZESTRI L) 2.5 mg tablet Take 1 tablet (2.5 mg total) by mouth daily 01/20/20 18 Active escitalopram (LEXAPRO) 10 mg tablet Take 1 tablet (10 mg total) by mouth daily Active insulin syringe-needle U-100 (BD Veo Insulin Syringe UF) 1 mL 31 gauge x syringeIndicatio ns:Type 2 diabetes mellitus with hyperglycemia, with long-term current use of insulin (HCC) Use 5 times daily with insulin 200 Syringe 2 09/10/19 21 Active Vascepa 1 gram capsule 04/24/20 21 Active atorvastatin (LIPITOR) 80 mg tablet Take 1 tablet (80 mg total) by mouth daily 30 tablet 11 08/31/19 23 Active BD [place] 2nd Gen Pen Needle 32 gauge x needleIndication s:Type 2 diabetes mellitus with hyperglycemia, with long-term current use of insulin ([facility]) USE 1 PEN NEEDLE FIVE TIMES DAILY 200 each 08/06/19 24 Active multivitamin tablet Take 1 tablet by mouth daily Active furosemide (Lasix) 40 mg tablet 1 tablet (40 mg total) 07/16/20 21 Active blood glucose diagnostic (OneTouch Verio test strips) stripIndications :Type 2 diabetes mellitus with hypoglycemia without coma, with long-term current use of insulin ([facility]) USE 1 STRIP TO CHECK GLUCOSE THREE TIMES DAILY 250 each 5 04/26/20 24 Active insulin regular (HumuLIN R) 100 unit/mL vial for injectionIndicat ions:Type 2 diabetes mellitus with hyperglycemia, with long-term current use of insulin ([facility]) USE CARB RATIO OF 1 UNIT FOR 2 GRAMS OF CARBS DIRECTED, PLUS SLIDING SCALE. MAX DAILY DOSE OF 100 UNITS 20 mL 5 06/14/20 24 Active insulin NPH (HumuLIN N) 100 unit/mL (3 mL) pen for injectionIndicat ions:Type 2 diabetes mellitus with hyperglycemia, with long-term current use of insulin ([facility]) INJECT 45 UNITS SUBCUTANEOUSLY TWICE DAILY, DO NOT EXCEED 100 UNITS PER DAY 30 mL 5 06/14/20 24 Active Jardiance 25 mg tabletIndication s:Type 2 diabetes mellitus with hyperglycemia, with long-term current use of insulin ([facility]) Take 1 tablet by mouth once daily 90 tablet 08/01/19 25 Active metFORMIN XR (GLUCOPHAGE XR) 500 mg 24 hr tabletIndication s:Type 2 diabetes mellitus with hyperglycemia, with long-term current use of insulin ([facility]) Take 1 tablet by mouth twice daily 180 tablet 09/13/19 25 Active Active Problems Problem Noted Date Diagnosed Date Morbid (severe) obesity due to excess calories 0 08/31/2022 Body mass index 40.0-44.9, adult ([facility]) 08/31 Inappropriate sinus tachycardia 08/25/2021 DUANE on CPAP 08/19/2020 Polycythemia, secondary 09/18/2019 Type 2 diabetes mellitus wit h hyperglycemia, with long-term current use of insulin 01/27/2018 Hyperlipidemia 01/27/2018 Stage 3 chronic kidney disease 01/27/2018 Calcium nephrolithiasis 12/31/2015 Hypertension 12/31/2015 Surgical History Surgery Date Site/Laterality Comments KIDNEY STONE SURGERY Medical History Medical History Date Comments DUANE (obstructive sleep apnea) Polycythemia Diabetes mellitus (HCC) Hypertension Hyperlipidemia Family History Medical History Relation Name Comments Pancreatic cancer Brother Heart disease Father No Known Problems Mother Colon cancer Sister Relation Name Status Comments Brother Father Mother Sister Social History Tobacco Use Types Packs/Day Years Used Date Smoking Tobacco: Some Days Cigarettes Smokeless Tobacco: Never Tobacco Cessation:Ready to Q uit: Not Asked; Counseling Given: Not Answered Alcohol Use Standard Drinks/Week Comments No 0 (1 standard drink = 0.6 oz pur e alcohol) Sex and Gender Information Value Date Recorded Sex Assigned at Not on file Legal Sex Male 9:11 PM SECURITY COMPLIANCE ENGINEER Gender Identity Not on file Sexual Orientation Not on file Obstetrics History Last Filed Vital Signs Vital Sign Reading Time Taken Comments Blood Pressure 147/82 06/05/2024 3:04 PM SECURITY COMPLIANCE ENGINEER Pulse 72 06/05/2024 3:04 PM SECURITY COMPLIANCE ENGINEER Temperature 36.6 C (97.9 F) 06/05/2024 3:04 PM SECURITY COMPLIANCE ENGINEER Respiratory Rate 16 08/31/2022 1:08 PM SECURITY COMPLIANCE ENGINEER Oxygen Saturation 95% 10/13/2018 9:47 AM CDT Inhaled Oxygen Concentration - - Weight 122.9 kg (271 lb) 06/05/2024 3:04 PM SECURITY COMPLIANCE ENGINEER Height 177.8 cm (5' 10 ) 06/05/2024 3:04 PM SECURITY COMPLIANCE ENGINEER Body Mass Index 38.88 06/05/2024 3:04 PM SECURITY COMPLIANCE ENGINEER Plan of Treatment Health Maintenance Due Date Last Done Comments Colon Cancer Screening-Colonoscopy 1950 Depression Screening 1950 Fall Risk Assessment 1950 Hepatitis C Screening 1950 Dilated Eye Exam 1950 Foot Exam 1950 DTaP/Tdap/Td Vaccine (1 - Tdap) 1961 Hepatitis B Screening 1968 Pneumococcal vaccine 65+ (1 of 2 - PCV) 1969 Zoster Vaccine (1 of 2) 2000 Abdominal Aortic Aneurysm (A AA) Screen 2015 Well Visit 65+ 2015 eGFR 06/04/2023 06/04/2022, 032 07/2018, 09/29/2018 Covid-19 Vaccine (2 - 2023-2 5 season) 2024 11/03/2020 Albumin Creatinine Ratio, Urine 06/09/2024 06/09/2023, 06/08/2023, 06/04/2022, Additional history exists Lipid Panel 06/09/2024 06/09/2023, 05/26, 08/21/2020, Additional history exists Hemoglobin A1C 12/03/2024 06/05/2024, 01/24, 11/22/2023, Additional history exists Influenza Vaccine (Season Ended) 2025 Procedures Procedure Name Priority Date/Time Associated Diagnosis Comments POCT HEMOGLOBIN A1C Routine 06/05/2024 3 :09 PM SECURITY COMPLIANCE ENGINEER Type 2 diabetes mellitus with hyperglycemia, with long-term current use of insulin (HCC) LIPID PANEL Routine 06/09/2023 Type 2 diabetes mellitus with hyperglycemia, with long-term current use of insulin (HCC) Primary hypertension Mixed hyperlipidemia Stage 3 chronic kidney disease, unspecified whether stage 3a or 3b CKD (HCC) DUANE on CPAP Vitamin D deficiency ALBUMIN CREATININE RATIO, URINE Routine 06/09/2023 Type 2 diabetes mellitus with hyperglycemia, with long-term current use of insulin (HCC) Primary hypertension Mixed hyperlipidemia Stage 3 chronic kidney disease, unspecified whether stage 3a or 3b CKD (HCC) DUANE on CPAP Vitamin D deficiency COMPREHENSIVE METABOLIC PANEL Routine 06/04/2022 11:26 AM SECURITY COMPLIANCE ENGINEER from Last 3 Months or Most Recently Relevant to Health Maintenance Results * POCT hemoglobin A1c (06/05/2024 3:09 PM SECURITY COMPLIANCE ENGINEER) Hemoglobin A1C, POC 7.1 4.0 - 5.6 % Blood 06/05/2024 3:09 PM SECURITY COMPLIANCE ENGINEER us Leeanna Villegas MD POINT OF CARE TEST ORDERAB LES Final Result * Albumin Creatinine Ratio, Urine (06/09/2023) Urine us Leeanna Villegas MD LAB URINE ORDERABLES Final Result EXTERNAL LAB * Lipid panel (06/09/2023) Blood us Leeanna Villegas MD LAB BLOOD ORDERABLES Final Result EXTERNAL LAB * (ABNORMAL) Comprehensive metabolic panel (06/04/2022 11:26 AM SECURITY COMPLIANCE ENGINEER) Glucose 199(H) 65 - 139 mg/dL [facility] Comment: Non-fasting reference interval BUN 36(H) 7 - 25 mg/dL [facility] Creatinine 1.82(H) 0.70 - 1.28 mg/dL [facility] eGFR 39(L) > OR = 60 mL/min/1.7 3m2 [facility] Comment: The eGFR is based on the CKD-EPI 2020 equation. To calculate the new eGFR from a previous Creatinine or Cystatin C result, go to https://www.kidney.org/professionals/ kdoqi/gfr%5Fcalculator BUN/creat ratio 20 6 - 22 (calc) [facility] Sodium 134(L) 135 - 146 mmol/L [facility] Potassium, pl 4.5 3.5 - 5.3 mmol/L [facility] Chloride 103 98 - 110 mmol/L [facility] CO2 21 20 - 32 mmol/L [facility] Calcium 9.9 8.6 - 10.3 mg/dL [facility] Protein, sr 7.1 6.1 - 8.1 g/dL [facility] Albumin 4.2 3.6 - 5.1 g/dL [facility] GLOBULIN 2.9 1.9 - 3.7 g/dL (calc) [facility] Alb/glob ratio 1.4 1.0 - 2.5 (calc) [facility] Bilirubin, total 0.4 0.2 - 1.2 mg/dL [facility] Alk phos 57 35 - 144 U/L [facility] AST 20 10 - 35 U/L [facility] ALT (SGPT) 23 9 - 46 U/L [facility] 06/04/2022 11:2 6 AM SECURITY COMPLIANCE ENGINEER 06/04/2022 11:28 AM SECURITY COMPLIANCE ENGINEER Narrative [facility] - 06/05/2022 12:26 PM SECURITY COMPLIANCE ENGINEER FASTING:NO FASTING: NO Leeanna Villegas MD LAB BLOOD ORDERABLES Final Result [facility] [address] [address] [id number] from Last 3 Months or Most Recently Relevant to Health Maintenance Insurance [facility] MEDICARE SUPPLEMENT INSURANCE MEDICARE MEDICARE [facility] MEDICARE SUPPLEMENT INSURANCE YESSICA CORDOVA [id number] MEDICARE [facility] MEDICARE SUPPLEMENT INSURANCE Care Teams Prosthetics Technician Relationship Specialty Start Date End Date Shekhar Gannon MD [address] [address] PCP - General 09/29/18 Amari Langston Jr., MD [address] [facility] [address] [place] [address] Medical Oncologist/Low Pressure Kettle Operator Medical Oncology 09/27/19
--- OUTSIDE RECORDS SUMMARY | 2024-12-07 11:40 | XMS_ITS | Encounter Summary ---
Author Organization [facility] Address [address] [place] [address] Phone Care Team Providers Care Pickle Pumper Name Role Phone Shashi Neves MD Primary Care Provider Shekhar Gannon MD Primary Care Provider Kian Ly MD, Amari Unavailable [phone]- [phone] Encounter Details Date Type Department Care Team (Late st Contact Info) Description 09/21/2017 Orders Only [facility] Provider, MD [place] [address] [place] [id number] Social History Tobacco Use Types Packs/Day Years Used Date Smoking Tobacco: Former Smokeless Tobacco: Never Alcohol Use Standard Drinks/Week Comments No 0 (1 standard drink = 0.6 oz pur e alcohol) Sex and Gender Information Value Date Recorded Sex Assigned at Not on file Legal Sex Male 9:11 PM ITEM PROCESSING CLERK Gender Identity Not on file Sexual Orientation Not on file documented as of this encounter Plan of Treatment Not on file documented as of this encounter Procedures Procedure Name Priority Date/Time Associated Diagnosis Comments DISCHARGE LABORATORY CUMULATIVE REPORT 09/21/2017 12:00 AM ITEM PROCESSING CLERK documented in this encounter Results * DISCHARGE LABORATORY CUMULATIVE REPORT (09/21/2017 12:00 AM ITEM PROCESSING CLERK) Narrative 09/21/2017 12:00 AM ITEM PROCESSING CLERK Ordered by an unspecified provider. Historical Provider LAB BLOOD ORDERABLES Stephanie l Result documented in this encounter Visit Diagnoses Not on filedocumented in this encounter Care Teams Pickle Pumper Relationship Specialty [place] [address] [place] [address] PCP - General 03/22/17 09/28/18 Shekhar Gannon MD [address] [place] [address] PCP - General 09/29/18 Amari Langston Jr., MD [address] [place] [address] Medical Oncologist/Welfare Project Manager Medical Oncology 09/27/19 documented as of this encounter
--- OUTSIDE RECORDS SUMMARY | 2024-12-07 11:40 | XMS_ITS | Referral Summary ---
Author Organization [facility] Address [address] [place] [address] Care Team Providers Care Milker Machine Name Role Phone Shekhar Gannon MD Primary Care Provider Kian Ly MD, Amari Unavailable [phone]- [phone] Allergies No known active allergies Medications carvedilol [...] hyperglycemia, with long-term current use of insulin ([facility]) USE 1 PEN NEEDLE FIVE TIMES DAILY 200 each 08/06/19 24 Active multivitamin tablet Take 1 tablet by mouth daily Active furosemide (Lasix) 40 mg tablet 1 tablet (40 mg total) 07/16/20 21 Active blood glucose diagnostic (OneTouch Verio test strips) stripIndications :Type 2 diabetes mellitus with hypoglycemia without coma, with long-term current use of insulin ([facility]) USE 1 STRIP TO CHECK GLUCOSE THREE TIMES DAILY 250 each 5 04/26/20 24 Active insulin regular (HumuLIN R) 100 unit/mL vial for injectionIndicat ions:Type 2 diabetes mellitus with hyperglycemia, with long-term current use of insulin ([facility]) USE CARB RATIO OF 1 UNIT FOR 2 GRAMS OF CARBS DIRECTED, PLUS SLIDING SCALE. MAX DAILY DOSE OF 100 UNITS 20 mL 5 06/14/20 24 Active insulin NPH (HumuLIN N) 100 unit/mL (3 mL) pen for injectionIndicat ions:Type 2 diabetes mellitus with hyperglycemia, with long-term current use of insulin ([facility]) INJECT 45 UNITS SUBCUTANEOUSLY TWICE DAILY, DO NOT EXCEED 100 UNITS PER DAY 30 mL 5 06/14/20 24 Active Jardiance 25 mg tabletIndication s:Type 2 diabetes mellitus with hyperglycemia, with long-term current use of insulin ([facility]) Take 1 tablet by mouth once daily 90 tablet 08/01/19 25 Active metFORMIN XR (GLUCOPHAGE XR) 500 mg 24 hr tabletIndication s:Type 2 diabetes mellitus with hyperglycemia, with long-term current use of insulin ([facility]) Take 1 tablet by mouth twice daily 180 tablet 09/13/19 25 Active Active Problems Problem Noted Date Diagnosed Date Morbid (severe) obesity due to excess calories 0 08/31/2022 Body mass index 40.0-44.9, adult ([facility]) 08/31 Inappropriate sinus tachycardia 08/25/2021 DUANE on CPAP 08/19/2020 Polycythemia, secondary 09/18/2019 Type 2 diabetes mellitus wit h hyperglycemia, with long-term current use of insulin 01/27/2018 Hyperlipidemia 01/27/2018 Stage 3 chronic kidney disease 01/27/2018 Calcium nephrolithiasis 12/31/2015 Hypertension 12/31/2015 Social History Tobacco Use Types Packs/Day Years Used Date Smoking Tobacco: Some Days Cigarettes Smokeless Tobacco: Never Tobacco Cessation:Ready to Q uit: Not Asked; Counseling Given: Not Answered Alcohol Use Standard Drinks/Week Comments No 0 (1 standard drink = 0.6 oz pur e alcohol) Sex and Gender Information Value Date Recorded Sex Assigned at Not on file Legal Sex Male 9:11 PM DREDGE CAPTAIN Gender Identity Not on file Sexual Orientation Not on file Last Filed Vital Signs Vital Sign Reading Time Taken Comments Blood Pressure 147/82 06/05/2024 3:04 PM DREDGE CAPTAIN Pulse 72 06/05/2024 3:04 PM DREDGE CAPTAIN Temperature 36.6 C (97.9 F) 06/05/2024 3:04 PM DREDGE CAPTAIN Respiratory Rate 16 08/31/2022 1:08 PM DREDGE CAPTAIN Oxygen Saturation 95% 10/13/2018 9:47 AM CDT Inhaled Oxygen Concentration - - Weight 122.9 kg (271 lb) 06/05/2024 3:04 PM DREDGE CAPTAIN Height 177.8 cm (5' 10 ) 06/05/2024 3:04 PM DREDGE CAPTAIN Body Mass Index 38.88 06/05/2024 3:04 PM DREDGE CAPTAIN Plan of Treatment Not on file Procedures Procedure Name Priority Date/Time Associated Diagnosis Comments POCT HEMOGLOBIN A1C Routine 06/05/2024 3 :09 PM DREDGE CAPTAIN Type 2 diabetes mellitus with hyperglycemia, with [...] COMPREHENSIVE METABOLIC PANEL Routine 06/04/2022 11:26 AM DREDGE CAPTAIN from Last 3 Months or Most Recently Relevant to Health Maintenance Results * POCT hemoglobin A1c (06/05/2024 3:09 PM DREDGE CAPTAIN) Hemoglobin A1C, POC 7.1 4.0 - 5.6 % Blood 06/05/2024 3:09 PM DREDGE CAPTAIN us Leeanna Villegas MD POINT OF CARE TEST ORDERAB LES Final Result * Albumin Creatinine Ratio, Urine (06/09/2023) Urine us Leeanna Villegas MD LAB URINE ORDERABLES Final Result EXTERNAL LAB * Lipid panel (06/09/2023) Blood us Leeanna Villegas MD LAB BLOOD ORDERABLES Final Result EXTERNAL LAB * (ABNORMAL) Comprehensive metabolic panel (06/04/2022 11:26 AM DREDGE CAPTAIN) Pathologist [facility] Glucose 199(H) 65 - 139 mg/dL [facility] [...] [facility] 06/04/2022 11:2 6 AM DREDGE CAPTAIN 06/04/2022 11:28 AM DREDGE CAPTAIN Narrative [facility] - 06/05/2022 12:26 PM DREDGE CAPTAIN FASTING:NO FASTING: NO Leeanna Villegas MD LAB BLOOD ORDERABLES Final Result [facility] [address] [place] [address] from Last 3 Months or Most Recently Relevant to Health Maintenance Insurance [facility] MEDICARE SUPPLEMENT INSURANCE MEDICARE [facility] MEDICARE SUPPLEMENT INSURANCE YESSICA CORDOVA [id number] MEDICARE [facility] MEDICARE SUPPLEMENT INSURANCE Care Teams Milker Machine Relationship Specialty Start Date End Date Shekhar Gannon MD [address] [place] [address] PCP - General 09/29/18 Amari Langston Jr., MD [address] [place] [address] Medical Oncologist/Rugby League Footballer Medical Oncology 09/27/19
--- OUTSIDE RECORDS SUMMARY | 2024-12-07 11:40 | XMS_ITS | Encounter Summary ---
Author Organization [facility] Address [address] [place] [id number] Care Team Providers Care Community Outreach Director Name Role Phone Unavailable Primary Care Provider Unavailabl e Encounter Details Date Type Department Care Team (Late st Contact Info) Description 12/31/2018 Abstract [facility] CONVERSION [id number] [address] [place] [id number] , Generic Conversion, Social History Tobacco Use Types Packs/Day Years Used Date Smoking Tobacco: Former Sex and Gender Information Value Date Recorded Sex Assigned at Not on file Legal Sex Male 11:46 PM CDT Gender Identity Not on file Sexual Orientation Not on file documented as of this encounter Plan of Treatment Not on file documented as of this encounter Visit Diagnoses Not on filedocumented in this encounter
--- OUTSIDE RECORDS SUMMARY | 2024-12-07 11:40 | XMS_ITS | Clinical Summary ---
Author Organization [facility] Address [address] [place] [address] Care Team Providers Care Erection Shop Supervisor Name Role Phone Shekhar Gannon MD Primary Care Provider [phone] Duglas Fuller MD Unavailable [phone] Biju Chavez MD Unavailable Source Comments [facility],non-owned Affiliates and Associated Physician Practices is amultiple site organization consisting of ambulatory clinics and hospital sitesin [place], [place], [place] and [place]. This disclosure is being madepursuant to the Care Everywhere program and may not contain all information available regarding this patient. Last updated 18.[facility] Allergies No known active allergies Medications * Be aware that medications may not be up to date on this document. Alwaysverify current medications with the patient. carvedilol (COREG) 25 MG tablet TAKE 1 TABLET BY MOUTH EVERY 12 HOURS ADMINISTER WITH A MEAL FOOD 0 Active escitalopram (LEXAPRO) 10 MG tablet Take 10 mg by mouth once daily 0 Active fenofibrate (LOFIBRA) 160 MG tablet Take 80 mg by mouth at bedtime 0 Active ONETOUCH VERIO test strip USE STRIP TO CHECK GLUCOSE THREE TIMES DAILY 0 Active lisinopril (PRINIVIL; ZESTRIL) 2.5 MG tablet Take 2.5 mg by mouth at bedtime 0 Active Insulin Syringe-Needle U-100 (BD ULTRAFINE 31 G X 6 MM 1 MLCHE) 31G X 15/64 1 ML syringes USE 5 TIMES DAILY WITH INSULIN 9 Active Insulin Pen Needle 32G X 4 MM MISC USE ONE ONCE DAILY 9 Active triamterene-hy droCHLOROthiaz eneida (DYAZIDE) 37.5-25 MG capsule Take 1 capsule by mouth once daily 0 Active Insulin NPH Human, Isophane, (NOVOLIN N SC) Inject 65 Units subcutaneously 2 times daily Active insulin regular human (NOVOLIN R) 100 UNIT/ML injection 2 times daily, before breakfast and supper SSI Active pravastatin (PRAVACHOL) 40 MG tablet Take 40 mg by mouth once daily 1 Active VASCEPA 1 g capsule 1 Active metFORMIN ER 24hr (GLUCOPHAGE XR) 500 MG tablet Take 1 tablet by mouth 2 times daily 1 Active Multiple Vitamin (MULTI-VITAMIN DAILY PO) Active celecoxib (CELEBREX) 200 MG capsule Take 1 (one) capsule by mouth 2 times daily 60 capsule 2 Active HYDROcodone-ac etaminophen (NORCO) 10-325 MG tablet Take 0.5 (one-half) tablet to 1 (one) tablet by mouth every 6 hours as needed for Pain 28 tablet 2 Active HUMALOG KWIKPEN 100 UNIT/ML pen INJECT 1 UNIT FOR EVERY 2 G CARB PLUS 1:25>200-TAKE 30 MINUTES BEFORE MEALS. TOTAL DAILY DOSE AROUND 110 UNITS 2 Active Active Problems Problem Noted Date Diagnosed Date Inappropriate sinus tachycardia 08/25/2021 Primary osteoarthritis of right knee 06/03/2021 DUANE on CPAP 08/19/2020 Primary osteoarthritis of both knees 07/10/2020 Stage 3 chronic kidney disease 01/27/2018 Type 2 diabetes mellitus wit h hyperglycemia, with long-term current use of insulin 01/27/2018 Hyperlipidemia 01/27/2018 Hypertension 12/31/2015 Social History Tobacco Use Types Packs/Day Years Used Date Smoking Tobacco: Every Day Cigarettes Smokeless Tobacco: Never Tobacco Cessation:Ready to Q uit: No; Counseling Given: Yes Alcohol Use Standard Drinks/Week Comments Not Currently 0 (1 standard drink = 0.6 oz pur e alcohol) AUDIT-C Answer Date Recorded Q1: How often do you have a drink containing alc ohol? Monthly or less 08/27/2021 Q2: How many drinks containi ng alcohol do you have on a typical day when you are drinking? 1 or 2 08/27/2021 Q3: How often do you have si x or more drinks on one occasion? Never 08/27/2021 Sex and Gender Information Value Date Recorded Sex Assigned at Not on file Legal Sex Male 10:18 AM FORMAL SERVICE WAITER Gender Identity Not on file Sexual Orientation Not on file Last Filed Vital Signs Vital Sign Reading Time Taken Comments Blood Pressure 129/64 08/29/2021 8:43 AM FORMAL SERVICE WAITER Pulse 95 08/29/2021 8:43 AM FORMAL SERVICE WAITER Temperature 36.4 C (97.5 F) 08/29/2021 8:43 AM FORMAL SERVICE WAITER Respiratory Rate 18 08/29/2021 4:19 AM FORMAL SERVICE WAITER Oxygen Saturation 95% 08/29/2021 8:43 AM FORMAL SERVICE WAITER Inhaled Oxygen Concentration - - Weight 126.1 kg (278 lb) 08/27/2021 5:42 AM FORMAL SERVICE WAITER Height 176.5 cm (5' 9.5 ) 08/27/2021 5:42 AM FORMAL SERVICE WAITER Body Mass Index 40.46 08/27/2021 5:42 AM FORMAL SERVICE WAITER Plan of Treatment Health Maintenance Due Date Last Done Comments COLOGUARD (AGES 45-75) - COLON CA SCREENING 1950 COLON MONITORING 1950 COLONOSCOPY - COLON CA SCREENING 1950 CT COLONOGRAPHY - COLON CA SCREENING 1950 Colorectal Cancer Screening 1950 FIT - COLON CA SCREENING 1950 FLEX SIG - COLON CA SCREENING 1950 MEDICARE AWV 12 MONTHS 1950 HEPATITIS C SCREENING 05/15/1968 DTAP/TDAP/TD VACCINES (1 - Tdap) 1969 PNEUMOCOCCAL VACCINE 50+ (1 of 2 - PCV) 1969 ZOSTER VACCINE (1 of 2) 2000 Respiratory Syncytial Virus (RSV) Vaccine Pt: or over 60 yrs (1 - Risk 60-74 years 1-dose series) 2010 AAA SCREENING 2015 DIABETES RETINOPATHY SCREENING 07/10/2020 DIABETES-FOOT EXAM WITH MONOFILAMENT 07/10/2020 DIABETES-HGB A1C 11/10/2021 05/12/2021, 07/2020, 07/31/2019, Additional history exists DIABETES-SERUM CREATININE 08/29/20222021, 08/06/2021, 05/12/2021, Additional history exists COVID-19 VACCINE ( season) 2024 11/03/2020 DEPRESSION SCREENING 07/26/2024 DIABETES - URINE PROTEIN SCREENING 07/26/2024 INFLUENZA VACCINE (Season Ended) 2025 HEPATITIS B VACCINE Aged Out No longe r eligible based on patient's age to complete this topic HIB VACCINE Aged Out No longer eligi ble based on patient's age to complete this topic HPV VACCINE Aged Out No longer eligi ble based on patient's age to complete this topic MENINGOCOCCAL (Group B) VACCINE SHARED DECISION-MAKING Aged Out No longer eligible based on patient's age to complete this topic MENINGOCOCCAL GROUPS A/C/Y/W VACCINE Aged Out No longer eligible based on patient's age to complete this topic Medical Devices Implanted Type Area Filler Shaker Device Identifier Shelf Expiration Date Model / Serial / Lot Cmnt Bone Djo Srg Cblt 40gm Hvisc Strl Implanted:Qty: 2 on 10/09/2020 by Duglas Fuller MD at [facility] Left: Knee [employer] 12/20/2020 [id number] / / [id number] Cmpnt Ptlr 31mm 1 Pg Wire Ascnt Arcm Kn Implanted:Qty: 1 on 10/09/2020 by Duglas Fuller MD at [facility] Left: Knee [employer] 08/05/2025 [id number] / / [id number] Tray Tib 83mm Kn Cocr I Beam Implanted:Qty: 1 on 10/09/2020 by Duglas Fuller MD at [facility] Left: Knee [employer] 03/14/2030 [id number] / / [id number] Cmpnt Fem Kn Lt Cr Cmnt Prm Vngrd Intlk Implanted:Qty: 1 on 10/09/2020 by Duglas Fuller MD at [facility] Left: Knee [employer] 04/08/2030 [id number] / / [id number] Brng 42ond56bn Vngrd Arcm Kn Ant Stab Implanted:Qty: 1 on 10/09/2020 by Duglas Fuller MD at [facility] Left: Knee [employer] 06/12/2025 [id number] / / [id number] As Tibial Bearing Implanted:Qty: 1 on 08/27/2021 by Duglas Fuller MD at [facility] Right: Knee 02/16/2024 [id number] / / [id number] Cmnt Bone Djo Srg Cblt 40gm Hvisc Strl Implanted:Qty: 2 on 08/27/2021 by Duglas Fuller MD at [facility] Right: Knee [employer] 11/11/2022 [id number] / / [id number] Cmpnt Ptlr 31mm 1 Pg Wire Ascnt Arcm Kn Implanted:Qty: 1 on 08/27/2021 by Duglas Fuller MD at [facility] Right: Knee [employer] 07/01/2026 [id number] / / [id number] Cmpnt Fem Kn Rt Cr Cmnt Prm Vngrd Intlk Implanted:Qty: 1 on 08/27/2021 by Duglas Fuller MD at [facility] Right: Knee [employer] 08/05/2030 [id number] / / [id number] Tray Tib 83mm Kn Cocr I Beam Implanted:Qty: 1 on 08/27/2021 by Duglas Fuller MD at [facility] Right: Knee [employer] 07/04/2031 [id number] / / [id number] Procedures Procedure Name Priority Date/Time Associated Diagnosis Comments BASIC METABOLIC PANEL (CALCIUM TOTAL) AM Draw 08/29/2021 6:01 AM FORMAL SERVICE WAITER DUANE on CPAP HEMOGLOBIN A1C STAT 09/23/2020 1:54 PM FORMAL SERVICE WAITER Type 2 diabetes mellitus with hyperglycemia, with long-term current use of insulin from Last 3 Months or Most Recently Relevant to Health Maintenance Results * (ABNORMAL) BASIC METABOLIC PANEL (CALCIUM TOTAL) (08/29/2021 6:01 AM FORMAL SERVICE WAITER) Glucose 177(H) 70 - 105 mg/dL 08/29/2021 6:24 AM [facility] Sodium 134(L) 136 - 145 mmol/L 08/29/2021 6:24 AM [facility] Potassium 4.1 3.5 - 5.1 mmol/L 08/29/2021 6:24 AM [facility] Chloride 102 98 - 107 mmol/L 08/29/2021 6:24 AM [facility] CO2 22(L) 23 - 31 mmol/L 08/29/2021 6:24 AM [facility] Calcium 9.4 8.4 - 10.4 mg/dL 08/29/2021 6:24 AM [facility] Anion Gap 10 8 - 18 mmol/L 08/29/2021 6:24 AM [facility] BUN 31(H) 8.4 - 25.7 mg/dL 08/29/2021 6:24 AM [facility] Creatinine 1.55(H) 0.72 - 1.25 mg/dL 08/29/2021 6:24 AM [facility] eGFR by MDRD 44 mL/min/1.7 3m2 08/29/2021 6:24 AM [facility] eGFR by MDRD 54 mL/min/1.7 3m2 08/29/2021 6:24 AM [facility] Blood BLOOD SPECIMEN / Unknown Venipuncture / Unknown 08/29/2021 6:01 AM FORMAL SERVICE WAITER 08/29/2021 6:04 AM [facility] Génesis Freeman MD LAB - CHEMISTRY ORDERABLES Final Result [facility] [id number] [place] [address] * (ABNORMAL) HEMOGLOBIN A1C (09/23/2020 1:54 PM FORMAL SERVICE WAITER) Hemoglobin A1c 6.9(H) 4.2 - 5.6 % 09/23/2020 2:26 PM [facility] Estimated Average Glucose 151 mg/dL 09/23/2020 2:26 PM [facility] Blood BLOOD SPECIMEN / Unknown Venipuncture / Unknown 09/23/2020 1:54 PM FORMAL SERVICE WAITER 09/23/2020 2:13 PM FORMAL SERVICE WAITER Narrative [facility] - 09/23/2020 2:26 PM FORMAL SERVICE WAITER The following cutoff levels are recommended by [place] [employer]. A1c > 6.5% : considered as diabetes if two separate tests >6.5% or in an appropriate clinical setting. A1c 5.7% - 6.4% : considered as prediabetes (suggest increased risk for diabetes and cardiovascular disease) Control target level: Should be individualized. < 7 for general (non-) , < 8% less stringent goal, < 6.5 more stringent goal. Hemoglobin A1c measurements are used as an aid in the diagnosis of diabetic mellitus, as an aid to identify patients who may be at the risk for developing diabetic mellitus, and for the monitoring long-term blood glucose control in individuals with diabetes mellitus. This test should not replace glucose testing for patients with Type 1 diabetes, pediatric patients, or women. Falsely low HbA1c results may be observed in patients with clinical conditions that shorten erythrocyte life span or decrease mean erythrocyte age such as the presence of unstable hemoglobin variants, elevated hemoglobin F level or other causes of hemolytic anemia . HbA1c may not accurately reflect glycemic control when clinical conditions that affect erythrocyte survival are present. Severe Iron deficiency anemia may yield falsely high results. Hemoglobin A1c assay should not be used to diagnose or monitor diabetes in patients with malignancy, recent blood transfusion, chronic kidney or liver disease. This method may yield falsely low results when hemoglobin (HbF) exceeds 5% in the specimen. Roz Shea UNIVERSITY MANAGER-DENTAL EQUIPMENT INSTALLER AND SERVICER LAB - CHEMISTRY ORDER TUCKER Final Result [facility] [id number] [place] [address] from Last 3 Months or Most Recently Relevant to Health Maintenance Insurance MEDICARE [employer] YESSICA CORDOVA [id number] MEDICAID - [place] MEDICARE [employer] MEDICARE [employer] YESSICA CORDOVA [id number] MEDICARE [place] [employer] YESSICA [place]ORD[place] [id number] Advance Directives * Full Code (Latest Code Status on File) Date Activated Date Inactivated Comments 08/27/2021 10:52 AM 08/29/2021 2:59 PM * Full Code Date Activated Date Inactivated Comments 10/09/2020 1:07 PM 10/10/2020 4:25 PM Care Teams Erection Shop Supervisor Relationship Specialty Start Date End Date Shekhar Gannon MD [address] [place] [address] PCP - General Family Medicine 07/09/20 [place] [address] [place] [address] Surgeon Orthopedic Surgery 07/09/20 Biju Chavez MD [address] [place] [phone] Cardiovascular Disease 09/02/20
--- OUTSIDE RECORDS SUMMARY | 2024-12-07 11:41 | XMS_ITS | Patient Health Record ---
Author Organization [facility] Address [address] [place] [id number] Care Team Providers Care Pinion Sorter Name Role Phone Shekhar Gannon Primary Care Provider LINDA Beaver Unavailable [phone] Oriana JACKSON, Wiliam Unavailable Unavailable Reason For Referral No Information Medications Medication SIG (Take, Route, Fr equency, Duration) Notes Start Date End Date Status Lisinopril 2.5 MG 1 tablet Orally Once a day for 30 day(s) Active Vitamin D3 2000 UNIT 1 capsule Orally On ce a day for 30 day(s) Active metFORMIN HCl 500 MG 1 tablet with a georgina l Orally Once a day for 30 day(s) Active NovoLIN R 100 UNIT/ML as directed Injection Active Carvedilol 25 MG 1 tablet Orally Twic e a day for 30 day(s) Active Fenofibrate 160 MG 1 tablet with food O rally Once a day for 30 day(s) Active Aspirin 81 MG 1 tablet Orally Once a day for 30 day(s) Active Problems Problem Type SNOMED Code ICD Code Onset Dates Problem Status W/U Status Risk Notes Problem 722132521 Primary osteoarthritis of both knees (M17.0) Active confirmed Problem 856422989 Tear of medial meniscus of left knee, current, unspecified tear type, initial encounter (S83.242A) Active confirmed Problem 084019187 Tear of medial meniscus of right knee, current, unspecified tear type, initial encounter (S83.241A) Active confirmed Plan Of Treatment Pending Test Test Name Order Date MRI BILATERAL KNEES WITHOUT CONTRAST Insurance Providers Payer Name Payer Address Payer Phone Subscriber Number Group Number Insured Name Patient Relationship to Insured Coverage Start Date Coverage End Date MEDICARE [place] [address] [address] [place], [place] [address] [id number] ILSA ARECHIGA Self - patient is the insured [employer] MEDICARE SUPPLEMENT [address] [address] [place] [address] [id number] ILSA ARECHIGA Self - patient is the insured Medical (General) History Medical History History ICD Code Diabetes Hx of kidney stones High cholesterol Hypertension Surgical History Surgery Date(Month/Year)
== END 2024-12-07 11:35 | disposition home or self-care (01) ==
PROVIDERS: PCP Family Medicine; Visit Provider Physician Assistant
DX: R26.89 Other abnormalities of gait and mobility (principal); R29.6 Repeated falls; R26.81 Unsteadiness on feet
CPT/HCPCS: 70553; A9579

== ENCOUNTER 2025-01-11 14:00 | Outpatient (RCR) | payer MEDICARE, SELFPAY ==
--- NOTE | 2024-10-20 14:51 | PTOPEVAL1 ---
Assessment and note entered by Fiona Daley, PT Evaluation Information Assessment Status Evaluation Diagnosis R26.81 - Unsteadiness on feet, R29.6 - Repeated falls ICD-10 Condition Codes (PT) Difficulty Walking R26.2,Abnormalities of gait and mobility R26.9,Weakness R53.1 Subjective Information Pt c/o multiple falls at home, 4-5 times in the last 6 months, 1 JOANN, has a SC but does not use it all the time at home, he carries it around when he is out in the community. He denies passing out, headaches or knees buckling. Most of the falls he 's had is attributed to loss of balance or just feeling unsteady. reports he did not think he feels numbness in the feet, he can still feel his feet on the ground when walking. States he occasionally get ringing in both ears from time to time. His main goal is to improve balance and not fall anymore. Reported Pain Level Pain Score 0: Self Report Assessment PT Clinical Summary Pt presents to therapy with c/o balance issues, repeated falls and unsteadiness on feet during standing and ambulation which greatly impact his confidence in performing functional mobility. He also currently demos significant reduction in strength, ROM, balance deficits, gait impairments, postural dysfunction which limits his overall mobility at this time. He will greatly benefit from skilled PT intervention to improve safety and reduce risk for falls. Plan of Care Interventions Check Out for Orthotic/Prosthetic,Electrical Stimulation,Gait Training,Hot Pack/Cold Pack, Manual Therapy,Neuro Re-education,Patient/ Caregiver Education,Therapeutic Activities, Therapeutic Exercise,Ultrasound,Other Other Interventions IASTM, Taping PT Services Indicated Yes Treatment Frequency and 2x/wk x 12 visits Duration These treatments will address the objective and functional deficits as defined above. The patient will be advanced safely and appropriately in order for the patient to progress towards his/her prior level of function. Additional exercises will be introduced and as well as a comprehensive home exercise program upon discharge, if needed, ?to ensure carryover of functional gains achieved in the clinic. This treatment plan has been reviewed and agreement upon by the patient.
--- NOTE | 2024-10-20 14:52 | OPREHPOC ---
Outpatient Therapy Plan of Care This is a Multidisciplinary Plan of Care that may contain components documented by all disciplines (PT, OT, and ST.) PT Problem 1 PT Problem #1 Knowledge Deficit PT Goal 1 Goal / Goal Update Pt will demo good understanding of causes of falls , fall prevention techniques and proper body mechanics and posture. Pt will perform HEPs to increase core strength, flexibility and balance. Target Visit 10 PT Problem 2 PT Problem #2 Impaired Balance PT Goal 1 Goal / Goal Update Pt will demo a Tinetti Assessment Score of 21/28 or more to reduce risk for falls. Target Visit 10 PT Problem 3 PT Problem #3 Impaired Gait PT Goal 1 Goal / Goal Update Pt will improve gait mechanics on various surfaces independently without assistive device. Pt will demo SLS x 10 seconds or more on each LE with good posture and core control. Target Visit 12 PT Problem 4 PT Problem #4 Impaired Functional Mobility PT Goal 1 Goal / Goal Update Pt will demo a score of 60% or more on ABC balance scale, improve Dynamic standing balance score to GOOD x 10 min to improve performance of functional tasks without fear of falling. Target Visit 12
--- NOTE | 2024-11-13 11:23 | PCPTNOTE ---
Pt forgot his appointment today
--- NOTE | 2024-11-21 16:51 | PTOPPROG ---
Assessment and note entered by Fiona Daley, PT Progress Information Assessment Status Progress Diagnosis R26.81 - Unsteadiness on feet, R29.6 - Repeated falls ICD-10 Condition Codes (PT) Pain in left hip M25.552,Repeated falls R29.6, Difficulty Walking R26.2,Abnormalities of gait and mobility R26.9,Weakness R53.1 Subjective Information Reports feeling a little stronger, had one fall a week ago after getting out of the car, he was hurrying to get inside the house to use the restroom, he was losing his balance while reaching forward to put cup he was holding on a cabinet in the garage, he felt like both feet are stuck on the ground and he could not move it the way he want it to move. He lost balance and started falling forward but somehow ended sitting on his butt. He was able to get back on his feet with one person assist. Also reported pain to L hip felt especially when first getting up or leaning on the L side; worse in the morning or after sitting for a prolonged period of time, better after moving around. Assessment PT Clinical Summary Pt received 9 treatment sessions and demos gains in strength and flexibility, subjective report on balance confidence has increased from 33% to 55%. However, he continue to demo postural dysfunction and a shuffling gait pattern that follows a specific occurrence e.g turning, changing directions, changing floor surfaces. Pt may benefit from further consult and specialized assessment in order to appropriately address deficits. He will also greatly benefit from continued skilled PT intervention to continue to work on movement impairments, gait deviation and balance issues, manage current c/o pain to L hip, in order to improve safety and reduce risk for falls. Plan of Care Interventions Check Out for Orthotic/Prosthetic,Electrical Stimulation,Gait Training,Hot Pack/Cold Pack, Manual Therapy,Neuro Re-education,Patient/ Caregiver Education,Therapeutic Activities, Therapeutic Exercise,Ultrasound,Other Other Interventions IASTM, Taping PT Services Indicated Yes Treatment Frequency and 2x/wk x 16 visits Duration These treatments will address the objective and functional deficits as defined above. The patient will be advanced safely and appropriately in order for the patient to progress towards his/her prior level of function. Additional exercises will be introduced and as well as a comprehensive home exercise program upon discharge, if needed, ?to ensure carryover of functional gains achieved in the clinic. This treatment plan has been reviewed and agreement upon by the patient.
--- NOTE | 2024-11-21 16:51 | OPREHPOC ---
Outpatient Therapy Plan of Care This is a Multidisciplinary Plan of Care that may contain components documented by all disciplines (PT, OT, and ST.) PT Problem 1 PT Problem #1 Knowledge Deficit PT Goal 1 Goal / Goal Update 1. Pt will demo good understanding of causes of falls, fall prevention techniques and proper body mechanics and posture. 2. Pt will perform HEPs to increase core strength, flexibility and balance. Target Visit 10 Progress Partially Met PT Goal 2 Goal / Goal Update update 11/21/2024: Pt reports not consistent with HEPs compliance. PT Problem 2 PT Problem #2 Impaired Balance PT Goal 1 Goal / Goal Update 1. Pt will demo a Tinetti Assessment Score of 21/ 28 or more to reduce risk for falls. Target Visit 10 PT Goal 2 Goal / Goal Update update: 11/21/2024 Pt continue to demo High Risk for falls at 11/28 Tinetti Assessment score PT Problem 3 PT Problem #3 Impaired Gait PT Goal 1 Goal / Goal Update 1. Pt will improve gait mechanics on various surfaces independently without assistive device. 2. Pt will demo SLS x 10 seconds or more on each LE with good posture and core control. Target Visit 12 PT Goal 2 Goal / Goal Update update 11/21/2024: 1. Pt continue to require cane for support and stability 2. Pt unable to do SLS at this time. Progress Not Met PT Problem 4 PT Problem #4 Impaired Functional Mobility PT Goal 1 Goal / Goal Update 1. Pt will demo a score of 60% or more on ABC balance scale, improve Dynamic standing balance score to GOOD x 10 min to improve performance of functional tasks without fear of falling. Target Visit 12 Progress Partially Met PT Goal 2 Goal / Goal Update update 11/21/2024: Pt's ABC balance scale score is improved to 55%
--- NOTE | 2025-01-04 16:53 | PTOPPROG ---
Assessment and note entered by Marisol Roth, PT Evaluation Information Assessment Status Progress Diagnosis R26.81 - Unsteadiness on feet, R29.6 - Repeated falls ICD-10 Condition Codes (PT) Pain in left hip M25.552,Repeated falls R29.6, Difficulty Walking R26.2,Abnormalities of gait and mobility R26.9,Weakness R53.1 Subjective Information Pt reports no falls recently, no near falls recently. States no problems in the left leg currently. Pt reports when wearing shoes feels stuck to the ground because can't slide feet. Reaching overhead is doing alright no feeling like going over backwards. Feels like is detention back to normal at the moment . Daughter reports walking seems better, getting into and out of vehicle is better as well. Did not use a cane prior to this balance issue. Pt states he has not been performing his home exercises due to being lazy Assessment PT Clinical Summary Pt has attended therapy consistently for gait abnormality, balance deficits, and repeated falls. Pt continues to report noncompliance to HEP due to what he reports is laziness. His daughter is present for reevaluation and states she has noticed improvement in pt's ability to get into and out of car and with walking and balance. Tinetti score is improved, 2 minute walk increased distance by 20 ft. However pt continues to demonstrate shuffling gait with very minimal self- correction, rigid postures, decreased flexibility and balance overall. Pt has a neuro consult soon as well. Pt will benefit from continued therapy with these next visits focusing on increased manual stretching, midline crossing, rotational movements to improve rigidity and assist in mobility. However if patient continues to decline to perform HEP or apply what he is learning in therapy from self-reported laziness and no other reason, pt will be discharged due to noncompliance . Plan of Care Interventions Check Out for Orthotic/Prosthetic,Electrical Stimulation,Gait Training,Hot Pack/Cold Pack, Manual Therapy,Neuro Re-education,Patient/ Caregiver Education,Therapeutic Activities, Therapeutic Exercise,Ultrasound,Other Other Interventions IASTM, Taping PT Services Indicated Yes Treatment Frequency and 1-2x weekly x 10 visits Duration These treatments will address the objective and functional deficits as defined above. The patient will be advanced safely and appropriately in order for the patient to progress towards his/her prior level of function. Additional exercises will be introduced and as well as a comprehensive home exercise program upon discharge, if needed, ?to ensure carryover of functional gains achieved in the clinic. This treatment plan has been reviewed and agreement upon by the patient.
--- NOTE | 2025-01-29 08:12 | PCPTNOTE ---
Admitting Provider: Attending Provider: Greg Kirkland PA-C Patient:Tom Segura Date of :1950 Patient has not returned for any further treatments since 01/11/2025. Patient?s initial visit was on 10/19/2024 11:00 and he had a total of 21 visits. While he and his daughter state they had seen improvement, objective improvement was minimal. It was discussed with patient and daughter multiple times importance of HEP for true progression. Upon inquiry, pt stated multiple times the only reason for not performing his exercises was due to laziness in his words. When asked if there was any changes that could be made to his program to allow increase ease of participation, he stated there were not. He was placed on hold until his Neurology appt on 01/24 and we have not heard from him or his family regarding findings. Thus patient is being discharged at this time. Should he require therapy services in the future, we would be happy to start fresh with a new outlook and create a new plan of care with an updated prescription for services. The goals have been not been met.
== END 2025-01-17 23:59 | disposition home or self-care (01) ==
LOC: ANHHIPT 14:00
PROVIDERS: PCP Family Medicine; Visit Provider Physician Assistant
DX: R26.81 Unsteadiness on feet (principal); R29.6 Repeated falls
CPT/HCPCS: 97110; 97112; 97116; 97140; 97161; 97530; 97750

== ENCOUNTER 2025-05-01 12:30 | Outpatient (RCR) | payer MEDICARE, SELFPAY ==
--- NOTE | 2025-02-07 15:26 | PTOPEVAL1 ---
Assessment and note entered by Marisol Roth, PT Evaluation Information Assessment Status Evaluation Diagnosis Parkinson's Dz G20.A1 ICD-10 Condition Codes (PT) Difficulty Walking R26.2,Abnormalities of gait and mobility R26.9 Subjective Information Pt reports feeling the medication is helping. States feels more movement in his hands. Is seeing [facility] for evaluation on this week at another location. Reported Pain Level Pain Score 0: Self Report Assessment PT Clinical Summary Pt is known to therapist for prior plan of care for same presentation. At that time he attended multiple sessions and was non-compliant with HEP. Importance of HEP and application of instruction was reinforced today for maximal benefits. Pt demonstrates signs consistent with diagnosis including shuffled and festinating gait pattern, difficulty with coordination or multi-tasking, rigidity, posterior center of gravity in standing. poor static and dynamic balance. Pt will benefit from physical therapy focusing on large movements, disassociation of joints and multiplanar motion, balance and corrective actions, and safety awareness. Plan of Care Interventions Gait Training,Neuro Re-education,Patient/Caregiver Education,Therapeutic Activities,Therapeutic Exercise,Self-Care/Home Management PT Services Indicated Yes Treatment Frequency and 2x weekly x 20 visits Duration These treatments will address the objective and functional deficits as defined above. The patient will be advanced safely and appropriately in order for the patient to progress towards his/her prior level of function. Additional exercises will be introduced and as well as a comprehensive home exercise program upon discharge, if needed, ?to ensure carryover of functional gains achieved in the clinic. This treatment plan has been reviewed and agreement upon by the patient.
--- NOTE | 2025-02-07 15:27 | OPREHPOC ---
Outpatient Therapy Plan of Care This is a Multidisciplinary Plan of Care that may contain components documented by all disciplines (PT, OT, and ST.) PT Problem 1 PT Problem #1 Knowledge Deficit PT Goal 1 Goal / Goal Update Pt will report 25% compliance with HEP Target Visit 10 PT Goal 2 Goal / Goal Update Pt will report 50% compliance with HEP PT Problem 2 PT Problem #2 Impaired Gait PT Goal 1 Goal / Goal Update Pt will demonstrate gait with each step passing the opposing foot for 80 ft with or without AD Target Visit 10 PT Goal 2 Goal / Goal Update Pt will demonstrate a 2 min walk test of 200 ft or more with or without AD Target Visit 20 PT Problem 3 PT Problem #3 Impaired Balance PT Goal 1 Goal / Goal Update Pt will show 5x sit to stand score of 30 seconds or less without retropuslion Target Visit 10 PT Goal 2 Goal / Goal Update Pt will demonstrate 5x sit to stand score without UEs of 20 seconds or less for improved motor planning Target Visit 20 PT Problem 4 PT Problem #4 Impaired Balance PT Goal 1 Goal / Goal Update Pt will show a Tinetti score of 20 or greater to show decreased chance of falls Target Visit 10 PT Goal 2 Goal / Goal Update Pt will show a Tinetti score of 24 or greater for low fall risk category. Target Visit 20
--- NOTE | 2025-02-08 15:59 | OPREHPOC ---
Outpatient Therapy Plan of Care This is a Multidisciplinary Plan of Care that may contain components documented by all disciplines (PT, OT, and ST.) PT Problem 1 PT Problem #1 Knowledge Deficit PT Goal 1 Goal / Goal Update Pt will report 25% compliance with HEP Target Visit 10 PT Goal 2 Goal / Goal Update Pt will report 50% compliance with HEP PT Problem 2 PT Problem #2 Impaired Gait PT Goal 1 Goal / Goal Update Pt will demonstrate gait with each step passing the opposing foot for 80 ft with or without AD Target Visit 10 PT Goal 2 Goal / Goal Update Pt will demonstrate a 2 min walk test of 200 ft or more with or without AD Target Visit 20 PT Problem 3 PT Problem #3 Impaired Balance PT Goal 1 Goal / Goal Update Pt will show 5x sit to stand score of 30 seconds or less without retropuslion Target Visit 10 PT Goal 2 Goal / Goal Update Pt will demonstrate 5x sit to stand score without UEs of 20 seconds or less for improved motor planning Target Visit 20 PT Problem 4 PT Problem #4 Impaired Balance PT Goal 1 Goal / Goal Update Pt will show a Tinetti score of 20 or greater to show decreased chance of falls Target Visit 10 PT Goal 2 Goal / Goal Update Pt will show a Tinetti score of 24 or greater for low fall risk category. Target Visit 20 ST Goal 1 Goal / Goal Update The patient will participate in home programming to improve carry over/generalization of skills to the home environment. Target Visit 6 ST Goal 1 Goal / Goal Update Dysarthria: 1. The patient will produce phrase/sentence length information utilizing compensatory techniques ( slow rate, one word at a time, and over articulation) with 85% intelligibility and minimal cues. 2. The patient will produce conversation exchanges x 5-7 utilizing compensatory techniques (slow rate, one word at a time, and over articulation) with 85% intelligibility and minimal cues. Target Visit 10 ST Goal 1 Goal / Goal Update Voice: 1. The patient will produce phrase/sentence length information audible at 65 decibels as measured by a voice meter with compensatory techniques 85% of the time and minimal cues. 2. The patient will produce conversation exchanges 5-7 audible at 65 decibels as measured by a voice meter with compensatory techniques 85% of the time and minimal cues. 3. The patient will complete a HEP for improved vocal strength and carry over of techniques outside treatment. Target Visit 10
--- NOTE | 2025-02-08 15:59 | STOPEVAL1 ---
Assessment and note entered by Leticia Childress [employer]IE[employer] Evaluation Information Assessment Status Evaluation Diagnosis G20 ICD-10 Condition Codes (ST) Other voice and resonance disorders R49.8 Subjective Information The patient is a 74 year old male referred for a speech consult following a new diagnosis of Parkinson's and changes in vocal volume, speech rate, and processing response time. The patient's reports changes in vocal quality of been progressive most likely over the past year. No changes in swallow function are being reported at this time. Reported Pain Level Pain Score 0: Self Report Assessment ST Clinical Summary The patient is a 74 year old male referred for a speech consult following a new diagnosis of Parkinson's and changes in vocal volume, speech rate, and processing response time. The patient's reports changes in vocal quality of been progressive most likely over the past year. No changes in swallow function are being reported at this time. The patient is able to produce clear responses at the single word and short phrase level. however, with increased length of responses or in simple conversational exchanges the patient's speech can become more mumbled with responses. The patient was able to sustain and /e/ or /ah/ sound for 7 seconds with only 55 decibels as measured by a voice meter. At simple phrase and sentence production again with a voice meter in close proximity to measure response the patient was only able to achieve voice at 55 decibels below the normal 65-70 decibels for optimal speech. When provided cues by the [employer]IE[employer] and modeling to increase voice projection, articulate each word and slower speech rate voice measured to hit 60 decibels. The patient is able to demonstrate the ability to follow directives and modeling for speech progress with a voice program. Recommend: Skilled speech services 1x a week for 10 visits to address vocal volume and speech intelligibility to improve everyday communication with family and others. Utilizing the [facility] Voice Program. Plan of Care Interventions Treatment of Voice ST Services Indicated Yes Treatment Frequency and 1x weekly/x 10 visits. Duration These treatments will address the objective and functional deficits as defined above. The patient will be advanced safely and appropriately in order for the patient to progress towards his/her prior level of function. Additional exercises will be introduced and as well as a comprehensive home exercise program upon discharge, if needed, ?to ensure carryover of functional gains achieved in the clinic. This treatment plan has been reviewed and agreement upon by the patient.
--- NOTE | 2025-02-19 14:26 | OTOPEVDC ---
Assessment and note entered by Ishmael Ford, OTR/L, CHT Thank you for referring Tom Segura to [facility].? An evaluation has been completed. No further treatment is needed. Evaluation Information & D/C Summary 02/19/25 Assessment Status Evaluation Diagnosis Parkinson's Disease Subjective Information Patient reports being diagnosed with PD a few months ago. He reports he takes medication 3x/day and this helps with his movement. He reports he notices a decline in his balance and reports no falls recently. He reports his signature isn't as good as it used to be, but doesn't write other than signing his name. He does not wear shoes that tie or clothes with buttons. He lives with his and has pets that he takes care of. He reports he is independent with ADLs and does not use an assistive device. When asked if he drives he states when my lets me. She brought him to his appointment today. Reported Pain Level Pain Score 0: Self Report Assessment OT Clinical Summary Patient referred to OT with the diagnosis of PD. Patient reports he has been completing ADLs and some household tasks independently. Today he demonstrates intact, symmetrical, and WFL strength and coordination. He is safe and independent with gross motor tasks such as placing cones on high and low shelves, such as when putting dishes away. No further skilled OT indicated at this time. D/C OT. Plan of Care OT Services Indicated No
--- NOTE | 2025-04-17 14:06 | STOPDC ---
Assessment and note entered by SYLWIA Sosa Evaluation Information Assessment Status Discharge Reported Pain Level Pain Score 0: Self Report Pain Score 0: Self Report Additional Pain Score Comments history of chronic back pain; Assessment ST Clinical Summary Initial Evaluation: The patient is a 74 year old male referred for a speech consult following a new diagnosis of Parkinson's and changes in vocal volume, speech rate, and processing response time. The patient's reports changes in vocal quality of been progressive most likely over the past year. No changes in swallow function are being reported at this time. The patient is able to produce clear responses at the single word and short phrase level. however, with increased length of responses or in simple conversational exchanges the patient's speech can become more mumbled with responses. The patient was able to sustain and /e/ or /ah/ sound for 7 seconds with only 55 decibels as measured by a voice meter. At simple phrase and sentence production again with a voice meter in close proximity to measure response the patient was only able to achieve voice at 55 decibels below the normal 65-70 decibels for optimal speech . When provided cues by the [employer] and modeling to increase voice projection, articulate each word and slower speech rate voice measured to hit 60 decibels. The patient is able to demonstrate the ability to follow directives and modeling for speech progress with a voice program. Recommend: Skilled speech services 1x a week for 10 visits to address vocal volume and speech intelligibility to improve everyday communication with family and others. Utilizing the [facility] Voice Program. Discharge: The patient has achieved all listed goals. producing intelligible speech at sentence and conversation level 90% of the time with use of compensatory techniques for slow rate, one word at a time, and over articulation. Producing sentence/phrases with increased vocal volume 70 decibels 85% of time. Conversation speech at 60-65 decibels 855 of time. Able to sustain an /a/ or / e/ for 20 seconds at 70-74 decibels. The patient has been provided a HEP and Parkinson Voice book to maintain voice and speech. Plan of Care ST Services Indicated No
--- NOTE | 2025-05-01 13:10 | OPREHPOC ---
Outpatient Therapy Plan of Care This is a Multidisciplinary Plan of Care that may contain components documented by all disciplines (PT, OT, and ST.) PT Problem 1 PT Problem #1 Knowledge Deficit PT Goal 1 Goal / Goal Update Pt will report 25% compliance with HEP Target Visit 10 PT Goal 2 Goal / Goal Update Pt will report 50% compliance with HEP 05-01-25 d/c goal not met Progress Not Met PT Problem 2 PT Problem #2 Impaired Gait PT Goal 1 Goal / Goal Update Pt will demonstrate gait with each step passing the opposing foot for 80 ft with or without AD Target Visit 10 PT Goal 2 Goal / Goal Update Pt will demonstrate a 2 min walk test of 200 ft or more with or without AD 05-01-25 d/c goal not met, improved to 175' without device Target Visit 20 Progress Not Met PT Problem 3 PT Problem #3 Impaired Balance PT Goal 1 Goal / Goal Update Pt will show 5x sit to stand score of 30 seconds or less without retropuslion Target Visit 10 PT Goal 2 Goal / Goal Update Pt will demonstrate 5x sit to stand score without UEs of 20 seconds or less for improved motor planning 05-01-25 d/c goal not met, 25 seconds Target Visit 20 Progress Not Met PT Problem 4 PT Problem #4 Impaired Balance PT Goal 1 Goal / Goal Update Pt will show a Tinetti score of 20 or greater to show decreased chance of falls Target Visit 10 PT Goal 2 Goal / Goal Update Pt will show a Tinetti score of 24 or greater for low fall risk category. 05-01-25 d/c goal not met, improved to 21/28 Target Visit [address] Goal 1 Goal / Goal Update The patient will participate in home programming to improve carry over/generalization of skills to the home environment. 04/17/25 Update: utilizing speech and voice strategies in home environment. Target Visit [address] Goal 1 Goal / Goal Update Dysarthria: 1. The patient will produce phrase/sentence length information utilizing compensatory techniques ( slow rate, one word at a time, and over articulation) with 85% intelligibility and minimal cues. 04/17/25 Update: Met 90-100% with techniques. 2. The patient will produce conversation exchanges x 5-7 utilizing compensatory techniques (slow rate, one word at a time, and over articulation) with 85% intelligibility and minimal cues. 04/17/25 Update: Met 90-100% in simple and complex conversation exchanges with techniques. Target Visit [address] Goal 1 Goal / Goal Update Voice: 1. The patient will produce phrase/sentence length information audible at 65 decibels as measured by a voice meter with compensatory techniques 85% of the time and minimal cues. 04/17/25 Update: Met 65 decibels 80-85% of the time . 2. The patient will produce conversation exchanges 5-7 audible at 65 decibels as measured by a voice meter with compensatory techniques 85% of the time and minimal cues. 04/17/25 Update: Met 60-65 decibels 85% of time. 3. The patient will complete a HEP for improved vocal strength and carry over of techniques outside treatment. 04/17/25 Update: Met HEP provided. Target Visit 10 Progress Met
--- NOTE | 2025-05-01 13:10 | PTOPDC ---
Assessment and note entered by Anuja Lane, PT Assessment Status Discharge Diagnosis Parkinson's Dz G20.A1 ICD-10 Condition Codes (PT) Difficulty Walking R26.2,Abnormalities of gait and mobility R26.9 Subjective Information feel like my walking is better; have not had any falls; mostly stays home and does not go out much; want to be finished with therapy today; Reported Pain Level Pain Score 0: Self Report Assessment PT Clinical Summary Tom has received 17 PT sessions. With today's assessment: reports he has not had any falls; Tinetti balance score improved to 21/ 28; 2 minute walking test distance of 175'; walking pattern with wide base of support, small step length, flat foot pattern and festering at times; 5 reps sit/stand time of 25 seconds with UEs on knees; gross strength of R and L LE's is 4/ 5; education completed for HEP. The goals were partially achieved. Discharge PT. He is to continue with HEP and recommend to continue to increase walking and activity level. Plan of Care PT Services Indicated No
== END 2025-05-01 15:18 | disposition home or self-care (01) ==
LOC: ANHPT 12:30
PROVIDERS: PCP Family Medicine; Visit Provider Psychiatry & Neurology Neurology
DX: R26.89 Other abnormalities of gait and mobility (principal); G20.B2 Parkinson's disease with dyskinesia, with fluctuations; R47.1 Dysarthria and anarthria
CPT/HCPCS: 92507; 92524; 97110; 97116; 97140; 97162; 97167; 97530